=== PATIENT | male | born 1955 | race Caucasian/White ===

== ENCOUNTER 2018-07-04 09:23 | Outpatient (CLI) ==
[2013-12-21 17:12] VITALS: BMI 36.1
== END 2018-07-04 09:24 | disposition home or self-care (01) ==
LOC: LAB 09:23
PROVIDERS: ATTEND Internal Medicine
DX: E11.9 Type 2 diabetes mellitus without complications (principal); E78.5 Hyperlipidemia, unspecified; J44.9 Chronic obstructive pulmonary disease, unspecified; I25.10 Atherosclerotic heart disease of native coronary artery without angina pectoris; E66.9 Obesity, unspecified; E53.8 Deficiency of other specified B group vitamins; Z79.899 Other long term (current) drug therapy; Z12.5 Encounter for screening for malignant neoplasm of prostate
CPT/HCPCS: 36415; 80053; 80061; 81001; 83036; 84439; 84443; 85025

== ENCOUNTER 2023-01-27 10:02 | Inpatient (IN) ==
--- NOTE | 2023-01-27 10:46 | ED.PDOC ---
General ED Provider: Dr. ANAIS JENNINGS MD Chief Complaint: Shortness of Air Stated Complaint: mild to mod shortness of breath and SWAN today, no fever, no NV, hx chf, htn, dm Time Seen by Provider: 01/27/23 10:03 Mode of Arrival: Walk-In Information Source: Patient Primary Care Provider: KEISHA PEREZ MD Nursing and Triage Documentation Reviewed and Agree: Yes Does patient meet sepsis criteria?: No System Inflammatory Response Syndrome: Not Applicable Sepsis Protocol: For patient's 13 years and over: Temp is 96.8 and below OR 101 and greater Pulse >90 BPM Resp >20/minute Acutely Altered Mental Status Are patient's symptoms suggestive of a new infection, such as: -Pneumonia -Skin, Soft Tissue -Endocarditis -UTI -Bone, Joint Infection -Implantable Device -Acute Abdominal Infection -Wound Infection -Meningitis -Blood Stream Catheter Infection -Unknown Review of Systems Review Of Systems Constitutional: Reports Malaise; Denies Fever Eyes: Denies Vision change Ears, Nose, Mouth, Throat: Denies Throat pain Respiratory: Reports Cough and Short of air; Denies Stridor Cardiac: Denies Chest pain GI: Denies Abdominal pain : Denies Flank pain Musculoskeletal: Denies Back pain or Neck pain Skin: Denies Rash Neurological: Denies Cognitive dysfunction All Other Systems: Other [facility] Social History Smoking and tobacco status: Never smoker Surgical History H/O gastric bypass Physical Exam Physical Exam Appearance: Reports Obese Ill-appearing: Mild Pain Distress: None Eyes: Reports SRINIVAS, EOMI and Conjunctiva clear ENT: Reports Oropharynx normal Neck: Supple Respiratory: Reports Airway patent and Breath sounds equal; Denies Retractions Cardiovascular: Reports RRR GI/: Reports Soft and Nontender Musculoskeletal: Reports ROM intact and No edema Skin: Reports Warm and Dry Neurological: Reports Alert and Oriented Psychiatric: Reports Affect appropriate Interpretation Radiology Interpretation Radiology Interpretation By: Radiologist Exam Interpreted: CXR Xray Comments: small bilateral pleural effusions and left base infil EKG Interpretation Time of EKG #1: 12:09 Interpretation: atrial fib 95, pvc, no stemi Critical Care Note Critical Care Note Total Critical Care Time (mins): 0 Course Course Hematology/Chemistry: 01/27/23 10:45 01/27/23 10:45 Orders, Labs, Meds: Lab Review 01/27/23 01/27/23 01/27/23 10:45 10:45 10:45 WBC 9.42 RBC 4.61 L Hgb 14.2 Hct 44.0 MCV 95.4 H MCH 30.8 MCHC 32.3 RDW Coeff of Matilda 14.5 Plt Count 203 Immature Gran % (Auto) 0.5 Neut % (Auto) 84.8 H Lymph % (Auto) 7.4 L Haines % (Auto) 6.8 Eos % (Auto) 0.1 Baso % (Auto) 0.4 Neut # (Auto) 8.0 H Lymph # (Auto) 0.7 Haines # (Auto) 0.6 Eos # (Auto) 0.0 Baso # (Auto) 0.0 Immature Gran # (Auto) 0.1 PT INR APTT Puncture Site Base Excess O2 Saturation ABG pH ABG pCO2 ABG pO2 ABG HCO3 ABG Total CO2 Mikey Test Hemoglobin Oxyhemoglobin Carboxyhemoglobin Total Hemoglobin FiO2 % Sodium 136.0 Potassium 3.56 Chloride 103.6 Carbon Dioxide 21.5 L Anion Gap 14.46 BUN 17.1 Creatinine 0.72 Estimated GFR (MDRD) 109.00 BUN/Creatinine Ratio 23.75 Glucose 331.7 H Lactic Acid 1.85 Calcium 9.16 Total Bilirubin 1.25 AST 44.3 ALT 34.0 Alkaline Phosphatase 138.7 H Troponin I 0.021 NT-Pro-B Natriuret Pep 11623 H Total Protein 8.11 Albumin 4.54 Globulin 3.57 Albumin/Globulin Ratio 1.27 SARS CoV-2 RNA Rapid JORGE 01/27/23 01/27/23 01/27/23 10:45 10:55 10:55 WBC RBC Hgb Hct MCV MCH MCHC RDW Coeff of Matilda Plt Count Immature Gran % (Auto) Neut % (Auto) Lymph % (Auto) Haines % (Auto) Eos % (Auto) Baso % (Auto) Neut # (Auto) Lymph # (Auto) Haines # (Auto) Eos # (Auto) Baso # (Auto) Immature Gran # (Auto) PT 11.3 H INR 1.09 APTT 26.4 Puncture Site Rrad Base Excess 0.4 O2 Saturation 92.7 L ABG pH 7.46 H ABG pCO2 34.0 L ABG pO2 62.0 L ABG HCO3 24.2 ABG Total CO2 25.2 H Mikey Test Pos Hemoglobin 0.7 Oxyhemoglobin 90.5 L Carboxyhemoglobin 1.6 H Total Hemoglobin 14.5 FiO2 % 21.0 Sodium Potassium Chloride Carbon Dioxide Anion Gap BUN Creatinine Estimated GFR (MDRD) BUN/Creatinine Ratio Glucose Lactic Acid Calcium Total Bilirubin AST ALT Alkaline Phosphatase Troponin I NT-Pro-B Natriuret Pep Total Protein Albumin Globulin Albumin/Globulin Ratio SARS CoV-2 RNA Rapid JORGE Negative Orders Category Date Time Status ABG DRAW REQUEST Stat CARDIO 01/27/23 10:43 Ordered EKG-(ED ONLY) Stat CARDIO 01/27/23 10:43 Ordered OXYGEN [ED APPLY O2] .ONCE EMERGENCY 01/27/23 11:20 Active ABG COOX Stat LAB 01/27/23 10:55 Completed CBC W/ AUTO DIFF Stat LAB 01/27/23 10:45 Completed CMP [COMPREHENSIVE METABOLIC PANEL] Stat LAB 01/27/23 10:45 Completed LACTIC ACID Stat LAB 01/27/23 10:45 Completed NT-PROBNP(ED) Stat LAB 01/27/23 10:45 Completed PT WITH INR Stat LAB 01/27/23 10:45 Completed PTT [PARTIAL THROMBOPLASTIN TIME] Stat LAB 01/27/23 10:45 Completed SARS COV-2 RNA RAPID JORGE Stat LAB 01/27/23 10:55 Completed TROPONIN I Stat LAB 01/27/23 10:45 Completed 750 mg IV Daily Manuel MEDS 01/28/23 09:00 Ordered Levofloxacin/D5w [Levaquin 750 mg/150 ml D5w] 750 mg in 150 ml IV DAILY Enoxaparin Sodium [Lovenox] MEDS 01/27/23 12:07 Once 100 mg SUBCUT ONCE ONE Furosemide [Lasix] MEDS 01/27/23 12:07 Once 20 mg IVP ONCE ONE CHEST, 1V AP ONLY Stat RADS 01/27/23 11:31 Completed Vital Signs: Temp Pulse Resp BP Pulse Ox 01/27/23 11:19 98 01/27/23 10:02 98.1 F 95 17 155/80 H 95 Discharge Plan Discharge Patient Disposition: ADMITTED INPATIENT Prescriptions: No Action metformin 1,000 mg tablet 1,000 mg PO BID Qty: 60 3RF hydrocodone-acetaminophen 5-500 mg tablet 1 tab PO TID PRN (Reason: pain) Label Comments: PATIENT REQUEST furosemide [Lasix] 40 MG tablet 40 mg PO DAILY isosorbide mononitrate [Imdur] 30 MG tablet extended release 24 hr 30 mg PO DAILY potassium chloride [Klor-Con 10] 10 MEQ tablet extended release 10 meq PO DAILY clopidogrel [Plavix] 75 MG tablet 75 mg PO DAILY simvastatin 40 MG tablet 40 mg PO DAILY aspirin 325 MG tablet,delayed release (DR/EC) 325 mg PO DAILY ferrous sulfate 325 MG tablet 325 mg PO DAILY nitroglycerin [Nitrostat] 0.4 MG tablet, sublingual 0.4 mg sublingual PRN PRN (Reason: Chest Pain) diphenhydramine-acetaminophen [Tylenol PM Extra Strength] 1 EACH tablet 1,000 mg PO BEDTIME Fish Oil 1 EACH capsule 1 cap PO DAILY citalopram 40 mg tablet 40 mg PO BEDTIME losartan-hydrochlorothiazide 50-12.5 mg tablet 1 tab PO QDAY topiramate [Topamax] 25 mg tablet 25 mg PO QDAY metoprolol tartrate 50 mg tablet 50 mg PO BID spironolactone 25 mg tablet 25 mg PO QDAY Qty: 90 1RF lorazepam 1 mg tablet 1 mg PO BEDTIME Qty: 30 3RF lorazepam 1 mg tablet 1 mg PO BEDTIME Qty: 30 3RF Did you review [place] [employer] for ALL controlled substances?: Not Applicable ED Provider: ANAIS JENNINGS Condition: Stable Physician Progress Note: []treatment and consult per Dr Perez, admit to hospital, full tele
[2023-01-27 10:50] LABS: BASOPHILS % (AUTO) 0.4 % (0.0-3.0); EOSINOPHILS % (AUTO) 0.1 % (0.0-7.0); HEMOGLOBIN 14.2 g/dl (14.0-18.0); IMMATURE GRANULOCYTE # (AUTO) 0.1 (0.0-1.0); IMMATURE GRANULOCYTE % (AUTO) 0.5 % (0.0-5.0); LYMPHOCYTES # (AUTO) 0.7 K/uL (0.60-3.4); LYMPHOCYTES % (AUTO) 7.4 (10.0-50.0); MEAN CORPUSCULAR HEMOGLOBIN 30.8 pg (27.0-31.0); MEAN CORPUSCULAR HGB CONC 32.3 (31.8-35.4); MEAN CORPUSCULAR VOLUME 95.4 fl (80.0-94.0); MONOCYTES # (AUTO) 0.6 K/uL (0.4-2.0); MONOCYTES % (AUTO) 6.8 (0-10); NEUTROPHILS % (AUTO) 84.8 % (42.2-75.2); PLATELET COUNT 203 10^3/uL (140-440); RDW COEFFICIENT OF VARIATION 14.5 % (11.6-14.8); RED BLOOD COUNT 4.61 10^6/ul (4.70-6.10); WHITE BLOOD COUNT 9.42 K/ul (4.2-10.2)
[2023-01-27 11:00] LABS: ALBUMIN 4.54 g/dL (3.5-5.0); ALKALINE PHOSPHATASE 138.7 U/L (56-119); ASPARTATE AMINO TRANSFERASE 44.3 U/L (17-59); BILIRUBIN,TOTAL 1.25 mg/dL (0.2-1.3); BLOOD UREA NITROGEN 17.1 mg/dL (9-20); CALCIUM 9.16 mg/dL (8.4-10.2); CARBON DIOXIDE 21.5 mmol/L (22-30.0); CHLORIDE 103.6 mmol/L (98-107); CREATININE 0.72 mg/dL (0.60-1.10); GLUCOSE 331.7 mg/dL (74-106); POTASSIUM 3.56 mmol/L (3.5-5.1); TOTAL PROTEIN 8.11 g/dL (6.3-8.2)
[2023-01-27 11:04] LABS: ABG O2 HGB 90.5 % (95-100); ABG PH 7.46 (7.35-7.45); BEecf 0.4 (-2.0-3.0); COHb 1.6 (0.5-1.5); HCO3 24.2 (21-28); MetHb 0.7 (0-1.5); TCO2 25.2 (19-24); sO2 92.7 % (94-98); tHb 14.5 g/dl (11.7-17.4)
[2023-01-27 11:11] LABS: TROPONIN I 0.021 ng/ml (0.0000-0.120)
[2023-01-27 11:28] LABS: SARS COV-2 RNA RAPID NAAT NEGATIVE (NEGATIVE)
[2023-01-27 11:29] LABS: PARTIAL THROMBOPLASTIN TIME 26.4 SEC (23.9-40.0); PROTHROMBIN TIME 11.3 SEC (9.3-11.0)
--- NOTE | 2023-01-27 11:53 | DI ---
EXAM: ONE-VIEW CHEST HISTORY: Weak TECHNIQUE: Single frontal view the chest was obtained. Comparison 03/28/2021. FINDINGS: The heart is normal size. Midline sternotomy wires are seen. Questionable patchy opaciti es are suspected in the left lung base. Lungs are otherwise clear. The pulmonary vasculature appear s normal. Small bilateral pleural effusions are suspected. IMPRESSION: Small bilateral pleural effusions. Possible mild atelectasis versus pneumonia seen in the left lung base.
[2023-01-27] MEDS ORDERED: LOVENOX SUBCUT ONE (12:07)
[2023-01-27] MEDS ORDERED: LASIX IVP ONE (12:07)
[2023-01-27] MEDS ORDERED: NITROSTAT SL PRN (12:16)
[2023-01-27] MEDS ORDERED: LEVAQUIN 500 MG/100 ML D5W 500 MG/100 ML BAG IV ONE (12:21)
[2023-01-27] MEDS ORDERED: SODIUM CHLORIDE 1,000 ML IV SCH (12:30)
[2023-01-27] MEDS ORDERED: SODIUM CHLORIDE 0.9%-KCL 20 MEQ 1,000 ML IV SCH (12:30)
[2023-01-27] MEDS ORDERED: HYZAAR 50-12.5 MG TAB PO SCH (12:30)
[2023-01-27 13:20] VITALS: BMI 29.1
[2023-01-27] MEDS: TOPAMAX PO SCH (13:35)
[2023-01-27] MEDS: TYLENOL PO PRN (13:35)
[2023-01-27] MEDS: ALDACTONE PO SCH (13:36)
[2023-01-27 13:49] LABS: BILIRUBIN,URINE Negative (NEGATIVE); CLARITY,URINE Clear (CLEAR); COLOR,URINE Yellow (YELLOW); GLUCOSE, URINE (UA) 2+ (NEGATIVE); KETONES,URINE Trace (NEGATIVE); LEUKOCYTE ESTERASE ,URINE Negative (NEGATIVE); NITRITE,URINE Negative (NEGATIVE); PROTEIN,URINE 2+ (NEGATIVE); URINE, BLOOD Negative (NEGATIVE)
[2023-01-27 13:57] LABS: HYALINE CASTS, URINE 0-2 (NOT PRESENT); SQUAMOUS EPITHELIAL CELL,UR NOT PRESENT (0-5); URINE RBC, MICROSCOPIC 0-2 (0-2); URINE WBC, MICROSCOPIC 0-2 (0-2)
[2023-01-27] MEDS ORDERED: LOPRESSOR PO ONE (14:32)
[2023-01-27] MEDS: HUMULIN R SUBCUT PRN ×2 (17:03→22:08)
[2023-01-27] MEDS: DUONEB NEB SCH ×2 (17:32→23:10)
[2023-01-27] MEDS ORDERED: DECADRON IM ONE (18:00)
[2023-01-27] MEDS ORDERED: PHENERGAN WITH CODEINE 6.25/10 MG/5 ML PO PRN (18:10)
[2023-01-27] MEDS: COZAAR PO SCH (20:22)
[2023-01-27] MEDS: TYLENOL PO SCH (20:23)
[2023-01-27] MEDS: CELEXA PO SCH (20:23)
[2023-01-27] MEDS: LOPRESSOR PO SCH (20:24)
[2023-01-27] MEDS: ATIVAN PO SCH (20:24)
[2023-01-27] MEDS: BENADRYL PO SCH (20:24)
[2023-01-27] MEDS ORDERED: ATIVAN PO SCH (21:00)
[2023-01-27] MEDS ORDERED: LOVENOX SUBCUT SCH (21:00)
[2023-01-28 02:04] LABS: BASOPHILS % (AUTO) 0.2 % (0.0-3.0); HEMATOCRIT 40.8 % (42.0-52.0); HEMOGLOBIN 13.1 g/dl (14.0-18.0); IMMATURE GRANULOCYTE % (AUTO) 0.7 % (0.0-5.0); LYMPHOCYTES # (AUTO) 0.6 K/uL (0.60-3.4); LYMPHOCYTES % (AUTO) 9.2 (10.0-50.0); MEAN CORPUSCULAR HEMOGLOBIN 30.6 pg (27.0-31.0); MEAN CORPUSCULAR HGB CONC 32.1 (31.8-35.4); MEAN CORPUSCULAR VOLUME 95.3 fl (80.0-94.0); MONOCYTES # (AUTO) 0.4 K/uL (0.4-2.0); MONOCYTES % (AUTO) 6.9 (0-10); NEUTROPHILS # (AUTO) 5.1 K/ul (2.0-6.9); PLATELET COUNT 178 10^3/uL (140-440); RDW COEFFICIENT OF VARIATION 14.6 % (11.6-14.8); RED BLOOD COUNT 4.28 10^6/ul (4.70-6.10); WHITE BLOOD COUNT 6.09 K/ul (4.2-10.2)
[2023-01-28 02:16] LABS: ALANINE AMINOTRANSFERASE 29.4 U/L (0-50); ALBUMIN 4.07 g/dL (3.5-5.0); ALKALINE PHOSPHATASE 99.6 U/L (56-119); ASPARTATE AMINO TRANSFERASE 41.1 U/L (17-59); BLOOD UREA NITROGEN 16.3 mg/dL (9-20); CALCIUM 8.53 mg/dL (8.4-10.2); CARBON DIOXIDE 25.3 mmol/L (22-30.0); CHLORIDE 102.4 mmol/L (98-107); CREATININE 0.74 mg/dL (0.60-1.10); GLUCOSE 195.5 mg/dL (74-106); POTASSIUM 3.66 mmol/L (3.5-5.1); SODIUM 134.8 mmol/L (134.5-145); TOTAL PROTEIN 7.35 g/dL (6.3-8.2)
[2023-01-28 02:28] LABS: TROPONIN I 0.04 ng/ml (0.0000-0.120)
[2023-01-28 02:47] LABS: THYROID STIMULATING HORMONE 0.354 uIU/L (0.465-4.68)
[2023-01-28] MEDS: DUONEB NEB SCH ×4 (04:45→23:55)
[2023-01-28] MEDS: NORCO 5-325 PO PRN (05:40)
[2023-01-28] MEDS: HUMULIN R SUBCUT PRN ×4 (06:09→21:28)
[2023-01-28] MEDS ORDERED: LASIX IVP ONE (08:03)
[2023-01-28] MEDS: IMDUR PO SCH (08:47)
[2023-01-28] MEDS: COZAAR PO SCH ×2 (08:47→20:33)
[2023-01-28] MEDS: ALDACTONE PO SCH (08:48)
[2023-01-28] MEDS: ZOCOR PO SCH (08:48)
[2023-01-28] MEDS: LASIX TAB PO SCH (08:48)
[2023-01-28] MEDS: OMEGA-3 FISH OIL PO SCH (08:49)
[2023-01-28] MEDS: FERROUS SULFATE PO SCH (08:49)
[2023-01-28] MEDS: LOPRESSOR PO SCH ×2 (08:49→20:33)
[2023-01-28] MEDS: TOPAMAX PO SCH (08:50)
[2023-01-28] MEDS: LEVAQUIN 750 MG/150 ML D5W 750 MG/150 ML BAG IV SCH (08:55)
[2023-01-28] MEDS ORDERED: PLAVIX PO SCH (09:00)
[2023-01-28] MEDS ORDERED: ASPIRIN EC PO SCH (09:00)
[2023-01-28] MEDS ORDERED: MICRO-K CAP PO SCH (09:00)
[2023-01-28] MEDS ORDERED: DECADRON IM SCH (09:00)
[2023-01-28] MEDS ORDERED: LEVAQUIN 750 MG/150 ML D5W 750 MG/150 ML BAG IV SCH (09:00)
[2023-01-28] MEDS: TYLENOL PO PRN (20:32)
[2023-01-28] MEDS: ATIVAN PO SCH (20:33)
[2023-01-28] MEDS: BENADRYL PO SCH (20:33)
[2023-01-28] MEDS: CELEXA PO SCH (20:33)
[2023-01-28] MEDS: TYLENOL PO SCH (20:51)
[2023-01-29] MEDS: DUONEB NEB SCH ×4 (05:20→23:08)
[2023-01-29 05:24] LABS: BASOPHILS % (AUTO) 0.2 % (0.0-3.0); EOSINOPHILS # (AUTO) 0.1 K/ul (0.0-0.7); HEMATOCRIT 39.7 % (42.0-52.0); IMMATURE GRANULOCYTE % (AUTO) 0.5 % (0.0-5.0); LYMPHOCYTES # (AUTO) 1.2 K/uL (0.60-3.4); LYMPHOCYTES % (AUTO) 14.3 (10.0-50.0); MEAN CORPUSCULAR HEMOGLOBIN 31.4 pg (27.0-31.0); MEAN CORPUSCULAR HGB CONC 32.7 (31.8-35.4); MEAN CORPUSCULAR VOLUME 95.9 fl (80.0-94.0); MONOCYTES # (AUTO) 0.7 K/uL (0.4-2.0); MONOCYTES % (AUTO) 8.8 (0-10); NEUTROPHILS # (AUTO) 6.1 K/ul (2.0-6.9); NEUTROPHILS % (AUTO) 75.2 % (42.2-75.2); PLATELET COUNT 187 10^3/uL (140-440); RDW COEFFICIENT OF VARIATION 14.2 % (11.6-14.8); RED BLOOD COUNT 4.14 10^6/ul (4.70-6.10); WHITE BLOOD COUNT 8.11 K/ul (4.2-10.2)
[2023-01-29 05:42] LABS: ALANINE AMINOTRANSFERASE 28.2 U/L (0-50); ALBUMIN 3.83 g/dL (3.5-5.0); ALKALINE PHOSPHATASE 95.7 U/L (56-119); ASPARTATE AMINO TRANSFERASE 38.7 U/L (17-59); BILIRUBIN,TOTAL 0.72 mg/dL (0.2-1.3); BLOOD UREA NITROGEN 15.6 mg/dL (9-20); CALCIUM 8.81 mg/dL (8.4-10.2); CARBON DIOXIDE 30.3 mmol/L (22-30.0); CHLORIDE 101.4 mmol/L (98-107); CREATININE 0.87 mg/dL (0.60-1.10); GLUCOSE 125.2 mg/dL (74-106); POTASSIUM 3.22 mmol/L (3.5-5.1); SODIUM 137.3 mmol/L (134.5-145); TOTAL PROTEIN 7.01 g/dL (6.3-8.2)
[2023-01-29] MEDS ORDERED: LASIX IVP ONE (06:00)
[2023-01-29] MEDS: TYLENOL PO PRN (07:30)
--- NOTE | 2023-01-29 08:56 | PCM.PROG ---
Attending Provider: ATTENDING PROVIDER: Dr. KEISHA KNUTSON MD This patient is seen with Cami Parker, Nurse Practitioner. DATE OF SERVICE: 01/29/23 SUBJECTIVE: This 67 year old /WHITE M was hospitalized 01/27/23. Had over 2,500 out yesterday. Down several pounds since admission. Repeat PRO BNP today. Breathing some better requiring oxygen. Dr. Knutson did Echo yesterday results are pending. REVIEW OF SYSTEMS: CONSTITUTIONAL: No night sweats. No fatigue, malaise, lethargy. No fever or chills. HEENT: Eyes: No visual changes. No eye pain. No eye discharge. ENT: No runny nose. No epistaxis. No sinus pain. No odynophagia. No congestion. RESPIRATORY: No cough, no congestion. No hemoptysis. Shortness of breath. CARDIOVASCULAR: No angina symptoms. No CHF symptoms. No atypical chest pain for CAD. No palpitations. Orthopnea.. GASTROINTESTINAL: No abdominal pain. No nausea or vomiting. No diarrhea or constipation. No hematemesis. No hematochezia. GENITOURINARY: No urgency. No frequency. No dysuria. No hematuria. No obstructive symptoms. No discharge. No pain. No significant abnormal bleeding. MUSCULOSKELETAL: No musculoskeletal pain; no joint swelling. Weakness. Leg edema. NEUROLOGICAL: Awake, alert, oriented to time, place and person. No headache. No neck pain. No syncope. No seizures. No dizziness. PSYCHIATRIC: Not anxious. No depression. No suicidal thoughts. No homicidal thoughts. SKIN: No rash. No lesions. No wounds. ENDOCRINE: No unexplained weight loss. No weight gain. HEMATOLOGIC/LYMPHATIC: No anemia. No purpura. No petechiae. No prolonged or ex cessive bleeding. No palpable lymph nodes. PHYSICAL EXAMINATION: GENERAL: The patient is awake, alert and oriented, sitting in bed in no distress. VITAL SIGNS: Temperature 97.7 F, Pulse 80, Respiratory Rate 18, BP 123/74, Pulse Ox 95% HEENT: Head normocephalic, atraumatic. Eyes: Extraocular muscles are intact. Pupils are equal, round and reactive to light and accommodation. Ears: No lesions. Nose appeared normal. Throat: No exudate or erythema. NECK: Supple. No JVD, no carotid bruit. No lymphadenopathy or thyromegaly. LUNGS: Severely diminished breath sounds. Bilateral crepitations. Use of accessory muscles to breathe. Clear to auscultation. Percussion note normal. Chest symmetrical. Pursed lip breathing. HEART: S1, S2, no S3. No murmurs. No cyanosis or clubbing. No ascites. Pulses: Dorsalis pedis and posterior tibial pulses +1 to +2 both sides. ABDOMEN: Soft. Non-tender. Bowel sounds active. No CVA tenderness. No mass felt. EXTREMITIES: No edema. Full range of motion of all extremities, equal. NEUROLOGIC: No focal deficit. Cranial nerves II through XII are grossly intact. No headache. No double vision. SKIN: Not dry. Intact. Turgor-normal. LYMPHATIC: No palpable lymph nodes/no lymphedema. MUSCULOSKELETAL: Normal joints with no swelling. Muscle tone is normal. LAB REVIEW: 01/29/23 05:04 01/29/23 05:04 01/29/23 05:04: Sodium 137.3, Potassium 3.22 L, Chloride 101.4, Carbon Dioxide 30.3 H, Anion Gap 8.82, BUN 15.6, Creatinine 0.87, Estimated GFR (MDRD) 87.00, BUN/Creatinine Ratio 17.93, Glucose 125.2 H, Calcium 8.81, Total Bilirubin 0.72, AST 38.7, ALT 28.2, Alkaline Phosphatase 95.7, Total Protein 7.01, Albumin 3.83, Globulin 3.18, Albumin/Globulin Ratio 1.20 01/29/23 05:04: WBC 8.11, RBC 4.14 L, Hgb 13.0 L, Hct 39.7 L, MCV 95.9 H, MCH 31.4 H, MCHC 32.7, RDW Coeff of Matilda 14.2, Plt Count 187, Immature Gran % (Auto) 0.5, Neut % (Auto) 75.2, Lymph % (Auto) 14.3, Tate % (Auto) 8.8, Eos % (Auto) 1.0, Baso % (Auto) 0.2, Neut # (Auto) 6.1, Lymph # (Auto) 1.2, Tate # (Auto) 0.7, Eos # (Auto) 0.1, Baso # (Auto) 0.0, Immature Gran # (Auto) 0.0 ASSESSMENT: Please see below. 1. Acute respiratory failure related to CHF 2. Acute CHF 3. New onset atrial fibrillation 4. Dilated cardiomyopathy with reduced ejection fraction, enlarged LA cavity 5. Hypokalemia 6. Hypertension PLAN: 1. Will for on PFT 2. Continue to monitor weight 3. Daily I&O 4. Continue with O2 5. Received 40mg IV Lasix today 6. Start Eliquis 5mg BID today 7. Potassium 20meq BID Plan and coordination of the patient's care discussed in the presence of Kerfer Machine Operator and nurse. SCRIBED BY: Kaila BAINS scribed while in presence of service performed by Cami Parker APRN on 01/29/23 ([id number])
[2023-01-29] MEDS ORDERED: MICRO-K CAP PO SCH (09:00)
[2023-01-29] MEDS: K-DUR PO SCH ×2 (09:50→17:00)
[2023-01-29] MEDS: OMEGA-3 FISH OIL PO SCH (09:50)
[2023-01-29] MEDS: LEVAQUIN 750 MG/150 ML D5W 750 MG/150 ML BAG IV SCH (09:50)
[2023-01-29] MEDS: LOPRESSOR PO SCH ×2 (09:50→20:08)
[2023-01-29] MEDS: TOPAMAX PO SCH (09:50)
[2023-01-29] MEDS: IMDUR PO SCH (09:52)
[2023-01-29] MEDS: COZAAR PO SCH ×2 (09:52→20:09)
[2023-01-29] MEDS: FERROUS SULFATE PO SCH (09:53)
[2023-01-29] MEDS: ZOCOR PO SCH (09:54)
[2023-01-29] MEDS: ELIQUIS PO SCH ×2 (09:55→20:09)
[2023-01-29] MEDS: ALDACTONE PO SCH (09:55)
--- NOTE | 2023-01-29 11:05 | HP ---
DATE OF SERVICE: 01/27/23 REASON FOR HOSPITALIZATION/HISTORY OF PRESENT ILLNESS: 67 year old white male hospitalized with cough, congestion and shortness of air nearly 2-3 weeks duration but getting worse in past 2-3 days. The patient was seen in the emergency room. Chest x-ray showed the possibility of pneumonia. The patient has cough with mildly yellow sputum production for past 2-3 days, short of breath with exertion more than usual for past couple of weeks, was consistent with orthopnea a couple of days. PAST MEDICAL HISTORY/PAST SURGICAL HISTORY: The patient is 29 BMI. History of anemia CHF Dyslipidemia Hypertension Diabetes mellitus Depression Generalized osteoarthritis REVIEW OF SYSTEMS: CONSTITUTIONAL: No night sweats. Fatigue. No fever or chills. HEENT: Eyes: No visual changes. No eye pain. No eye discharge. ENT: No runny nose. No epistaxis. No sinus pain. No sore throat. No odynophagia. No ear pain. No congestion. RESPIRATORY: Cough with yellowish sputum production, no congestion. No hemoptysis. Shortness of breath on minimal exertion. CARDIOVASCULAR: No angina symptoms. No CHF symptoms. No atypical chest pain for CAD. No palpitations. No PND. Questionable orthopnea a couple of days prior to hospitalization. GASTROINTESTINAL: No abdominal pain. No nausea or vomiting. No diarrhea or constipation. No hematemesis. No hematochezia. Appetite has been somewhat below par. GENITOURINARY: No urgency. No frequency. No dysuria. No hematuria. No obstructive symptoms. No discharge. No pain. No significant abnormal bleeding. MUSCULOSKELETAL: No musculoskeletal pain. No joint swelling. No arthritis. Weakness. NEUROLOGICAL: No headache. No neck pain. No syncope. No seizures. No dizziness. PSYCHIATRIC: Not anxious. No depression. No suicidal thoughts. No homicidal thoughts. SKIN: No rash. No lesions. No wounds. ENDOCRINE: No unexplained weight loss. No weight gain. HEMATOLOGIC/LYMPHATIC: No anemia. No purpura. No petechiae. No prolonged or excessive bleeding. No palpable lymph nodes. PERSONAL/FAMILY/SOCIAL HISTORY: The patient lives by himself. Nonsmoker. No alcohol abuse. Does all activity of daily living. Non-smoker. No alcohol abuse. 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 MEDICATIONS: Aspirin Clopidogrel Ferrous sulfate Lasix Isosorbide Nitroglycerin Potassium Simvastatin Lorazepam Losartan Metoprolol Spironolactone Metformin Hydrocodone Citalopram ALLERGIES: None PHYSICAL EXAMINATION: GENERAL: The patient is oriented to time, place and person. VITAL SIGNS: Temperature 97.3, pulse 100, respiratory rate 20, blood pressure 155/80 and pulse ox 99% with 2 liters. HEENT: Head normocephalic, atraumatic. Eyes: Extraocular muscles are intact. Pupils are equal, round and reactive to light and accommodation. Ears: No lesions. Nose appeared normal. Throat: No exudate or erythema. NECK: Supple. No JVD, no carotid bruit. No lymphadenopathy or thyromegaly. LUNGS: Decreased breath sounds with few crepitation mostly dry. Clear to auscultation. Percussion note normal. Chest symmetrical. HEART: S1, S2, no S3. Irregular rate, 100 per minute. No murmur. No cyanosis or clubbing. No ascites. Pulses: Dorsalis pedis and posterior tibial pulses +1 bilaterally. ABDOMEN: Soft. Nontender. Bowel sounds active. No CVA tenderness. No mass felt. Don't think that there is ascites. EXTREMITIES: Trace to 1+ pitting edema. Full range of motion of all extremities, equal. NEUROLOGIC: No focal deficit. Cranial nerves II through XII are grossly intact. No headache, no double vision or headache. SKIN: Not dry. Intact. Turgor - normal. LYMPHATIC: No palpable lymph nodes/no lymphedema. MUSCULOSKELETAL: Normal joints with no swelling. Muscle tone is normal. LABS: Hgb 14, hct 44, WBC 9,400 normal differential, creatinine 0.7, BUN 17, potassium 3.5. Lactic acid 1.85. ProBNP 10,500. GFR 109 cc per minutes. ABG pO2 62, pCO2 34, pH 7.4 with 93% saturation on room air. Chest x-ray possibility of pneumonia, left side. ASSESSMENT: 1. Acute pneumonitis 2. Possibility of congestive heart failure 3. History of CHF, systolic 4. Hypertension 5. Diabetes Mellitus 6. Dyslipidemia 7. Depression 8. Generalized osteoarthritis 9. Chronic lung disease PLAN: 1. Admit regular floor 2. Routine telemetry orders 3. IV Lasix 40mg 4. Levaquin 150mg IV Q 24 hours 5. Continue all the rest of the medications with the changes as follows 6. Discontinue Cozaar with hydrochlorothiazide 7. Cozaar 50 twice a day 8. The patient is on Lasix. There is no need to continue Hydrochlorothiazide with Cozaar 9. 1cc Decadron IM now and 1cc Decadron in the morning. 10.Echocardiogram to evaluation LV function 11.Oxygen at 2 liters 12.Continue DUO NEBS as ordered 13.The patient explained about the diagnosis and treatment. CONDITION: Stable The patient is DNI. TIME SPENT: More than 75 minutes. ADDENDUM: The patient's EKG showed atrial fibrillation with rate of 100 per minute. Seems to be almost a new finding to be me but I will check the office chart. The patient's doesn't have palpitation. Extra dose of Lopressor given 50mg. He will have an echo that will evaluate for thrombus or thrombi along with LA size and left ventricular function. He is going to be on Lovenox for now with Plavix but the patient is going to be converted to Eliquis if the atrial fibrillation continues more than 24 hours. MTDD
[2023-01-29] MEDS: HUMULIN R SUBCUT PRN ×3 (11:44→20:55)
--- NOTE | 2023-01-29 13:14 | PN ---
DATE OF SERVICE: 01/28/23 SUBJECTIVE: The patient was seen and examined with the Nurse Practitioner. The patient is feeling somewhat better. REVIEW OF SYSTEMS: CONSTITUTIONAL: No night sweats. No fatigue, malaise, lethargy. No fever or chills. HEENT: Eyes: No visual changes. No eye pain. No eye discharge. ENT: No runny nose. No epistaxis. No sinus pain. No sore throat. No odynophagia. No congestion. RESPIRATORY: No cough, no congestion. No hemoptysis. No shortness of breath. CARDIOVASCULAR: No angina symptoms. No CHF symptoms. No atypical chest pain for CAD. No palpitations. No PND. No orthopnea. GASTROINTESTINAL: No abdominal pain. No nausea or vomiting. No diarrhea or constipation. No hematemesis. No hematochezia. GENITOURINARY: No urgency. No frequency. No dysuria. No hematuria. No obstructive symptoms. No discharge. No pain. No significant abnormal bleeding. MUSCULOSKELETAL: No musculoskeletal pain; no joint swelling. NEUROLOGICAL: No headache. No neck pain. No syncope. No seizures. No dizziness. PSYCHIATRIC: Not anxious. No depression. No suicidal thoughts. No homicidal thoughts. SKIN: No rash. No lesions. No wounds. ENDOCRINE: No unexplained weight loss. No weight gain. HEMATOLOGIC/LYMPHATIC: No anemia. No purpura. No petechiae. No prolonged or excessive bleeding. No palpable lymph nodes. PHYSICAL EXAMINATION: HEENT: Head normocephalic, atraumatic. Eyes: Extraocular muscles are intact. Pupils are equal, round and reactive to light and accommodation. Ears: No lesions. Nose appeared normal. Throat: No exudate or erythema. NECK: Supple. No JVD, no carotid bruit. No lymphadenopathy or thyromegaly. LUNGS: Decreased breath sounds and better air entry than yesterday. Percussion note normal. Chest symmetrical. HEART: S1, S2, no S3. No murmurs. No cyanosis or clubbing. No ascites. Pulses: Dorsalis pedis and posterior tibial pulses +1 to +2 bilaterally. ABDOMEN: Soft. Nontender. Bowel sounds active. No CVA tenderness. No mass felt. EXTREMITIES: No edema. Full range of motion of all extremities, equal. NEUROLOGIC: No focal deficit. Cranial nerves II through XII are grossly intact. No headache. No double vision. SKIN: Not dry. Intact. Turgor - normal. LYMPHATIC: No palpable lymph nodes/no lymphedema. MUSCULOSKELETAL: Normal joints with no swelling. Muscle tone is normal. ASSESSMENT: 1. Pneumonia seems to be resolving, clinically better, coughing 2. CHF, no symptoms of it. No orthopnea. Slept well at 4-5 hours. 3. PLAN: 1. The patient had an echo done which showed enlarged LA cavity, LV cavity, ejection fraction 40%. 2. The patient continues to have atrial fibrillation. 3. We are going to stop Plavix, Aspirin, Lovenox 4. Eliquis from tomorrow. Side effects of Eliquis discussed with the patient including intracranial bleed, GI bleed. Advised not to take nonsteroidal antiinflammatory CONDITION: Stable. TIME SPENT: More than 35 minutes. Plan and coordination of the patient's care discussed in the presence of nurse. CARLOS
[2023-01-29] MEDS: TYLENOL PO SCH (20:08)
[2023-01-29] MEDS: ATIVAN PO SCH (20:08)
[2023-01-29] MEDS: BENADRYL PO SCH (20:09)
[2023-01-29] MEDS: CELEXA PO SCH (20:09)
[2023-01-30] MEDS: DUONEB NEB SCH ×4 (04:45→23:06)
[2023-01-30 05:22] LABS: BASOPHILS % (AUTO) 0.7 % (0.0-3.0); EOSINOPHILS # (AUTO) 0.2 K/ul (0.0-0.7); EOSINOPHILS % (AUTO) 2.8 % (0.0-7.0); HEMATOCRIT 43.5 % (42.0-52.0); HEMOGLOBIN 13.9 g/dl (14.0-18.0); IMMATURE GRANULOCYTE % (AUTO) 0.5 % (0.0-5.0); LYMPHOCYTES # (AUTO) 1.3 K/uL (0.60-3.4); LYMPHOCYTES % (AUTO) 22.5 (10.0-50.0); MEAN CORPUSCULAR HEMOGLOBIN 30.6 pg (27.0-31.0); MEAN CORPUSCULAR VOLUME 95.8 fl (80.0-94.0); MONOCYTES # (AUTO) 0.6 K/uL (0.4-2.0); MONOCYTES % (AUTO) 9.7 (0-10); NEUTROPHILS # (AUTO) 3.7 K/ul (2.0-6.9); NEUTROPHILS % (AUTO) 63.8 % (42.2-75.2); PLATELET COUNT 187 10^3/uL (140-440); RDW COEFFICIENT OF VARIATION 14.5 % (11.6-14.8); RED BLOOD COUNT 4.54 10^6/ul (4.70-6.10); WHITE BLOOD COUNT 5.77 K/ul (4.2-10.2)
[2023-01-30 05:36] LABS: ALANINE AMINOTRANSFERASE 39.6 U/L (0-50); ALBUMIN 3.91 g/dL (3.5-5.0); ALKALINE PHOSPHATASE 88.8 U/L (56-119); ASPARTATE AMINO TRANSFERASE 47.6 U/L (17-59); BILIRUBIN,TOTAL 0.7 mg/dL (0.2-1.3); BLOOD UREA NITROGEN 19.9 mg/dL (9-20); CALCIUM 8.66 mg/dL (8.4-10.2); CARBON DIOXIDE 30.2 mmol/L (22-30.0); CHLORIDE 100.2 mmol/L (98-107); CREATININE 0.98 mg/dL (0.60-1.10); GLUCOSE 113.6 mg/dL (74-106); POTASSIUM 3.58 mmol/L (3.5-5.1); SODIUM 135.1 mmol/L (134.5-145); TOTAL PROTEIN 7.09 g/dL (6.3-8.2)
[2023-01-30] MEDS: LASIX TAB PO SCH (06:03)
[2023-01-30] MEDS: K-DUR PO SCH ×2 (09:10→17:33)
[2023-01-30] MEDS: ALDACTONE PO SCH (09:10)
[2023-01-30] MEDS: IMDUR PO SCH (09:10)
[2023-01-30] MEDS: LEVAQUIN 750 MG/150 ML D5W 750 MG/150 ML BAG IV SCH (09:10)
[2023-01-30] MEDS: LOPRESSOR PO SCH ×2 (09:10→20:26)
[2023-01-30] MEDS: COZAAR PO SCH ×2 (09:10→20:27)
[2023-01-30] MEDS: OMEGA-3 FISH OIL PO SCH (09:10)
[2023-01-30] MEDS: ZOCOR PO SCH (09:11)
[2023-01-30] MEDS: TOPAMAX PO SCH (09:11)
[2023-01-30] MEDS: FERROUS SULFATE PO SCH (09:11)
[2023-01-30] MEDS: ELIQUIS PO SCH ×2 (09:11→20:27)
[2023-01-30] MEDS: HUMULIN R SUBCUT PRN ×2 (12:25→20:25)
[2023-01-30] MEDS: NORCO 5-325 PO PRN (13:36)
--- NOTE | 2023-01-30 13:49 | PN ---
DATE OF SERVICE: 01/29/23 SUBJECTIVE: Patient was seen and examined with the nurse practitioner. Patient's condition has improved. His breathing is a lot better. His pneumonitis seems to have resolved clinically. His appetite has improved. I think he had a combination of bronchitis with CHF. Atrial fib is a new onset. We put patient on Eliquis. Patient has enlarged left atrium for a while from his previous echos. Patient declined to see third cook. He doesn't want cardioversion. He says he is feeling fine and is good with the medicine and that's all he would like to have. REVIEW OF SYSTEMS: CONSTITUTIONAL: No night sweats. No fatigue, malaise, lethargy. No fever or chills. HEENT: Eyes: No visual changes. No eye pain. No eye discharge. ENT: No runny nose. No epistaxis. No sinus pain. No sore throat. No odynophagia. No congestion. RESPIRATORY: No cough, no congestion. No hemoptysis. No shortness of breath. CARDIOVASCULAR: No angina symptoms. No CHF symptoms. No atypical chest pain for CAD. No palpitations. No PND. No orthopnea. GASTROINTESTINAL: No abdominal pain. No nausea or vomiting. No diarrhea or constipation. No hematemesis. No hematochezia. GENITOURINARY: No urgency. No frequency. No dysuria. No hematuria. No obstructive symptoms. No discharge. No pain. No significant abnormal bleeding. MUSCULOSKELETAL: No musculoskeletal pain; no joint swelling. NEUROLOGICAL: No headache. No neck pain. No syncope. No seizures. No dizziness. PSYCHIATRIC: Not anxious. No depression. No suicidal thoughts. No homicidal thoughts. SKIN: No rash. No lesions. No wounds. ENDOCRINE: No unexplained weight loss. No weight gain. HEMATOLOGIC/LYMPHATIC: No anemia. No purpura. No petechiae. No prolonged or excessive bleeding. No palpable lymph nodes. PHYSICAL EXAMINATION: GENERAL: The patient is in no distress. HEENT: Head normocephalic, atraumatic. Eyes: Extraocular muscles are intact. Pupils are equal, round and reactive to light and accommodation. Ears: No lesions. Nose appeared normal. Throat: No exudate or erythema. NECK: Supple. No JVD, no carotid bruit. No lymphadenopathy or thyromegaly. LUNGS: Clear to auscultation. Percussion note normal. Chest symmetrical. HEART: S1, S2, no S3. No murmurs. No cyanosis or clubbing. No ascites. Pulses: Dorsalis pedis and posterior tibial pulses +1 to +2 bilaterally. ABDOMEN: Soft. Nontender. Bowel sounds active. No CVA tenderness. No mass felt. EXTREMITIES: No edema. Full range of motion of all extremities, equal. NEUROLOGIC: No focal deficit. Cranial nerves II through XII are grossly intact. No headache. No double vision. SKIN: Not dry. Intact. Turgor - normal. LYMPHATIC: No palpable lymph nodes/no lymphedema. MUSCULOSKELETAL: Normal joints with no swelling. Muscle tone is normal. TIME SPENT: More than 35 minutes. Plan and coordination of the patient's care discussed in the presence of nurse. CARLOS
--- NOTE | 2023-01-30 13:56 | PN ---
DATE OF SERVICE: 01/30/23 SUBJECTIVE: 67 year old white male hospitalized with respiratory failure, hypoxemia. Patient's condition seems to be improving, he is feeling better and talking a lot better. He is coughing much less. REVIEW OF SYSTEMS: CONSTITUTIONAL: No fever or chills. HEENT: Eyes: No visual changes. No eye pain. No eye discharge. ENT: No runny nose. No epistaxis. No sinus pain. No sore throat. No odynophagia. No congestion. RESPIRATORY: Shortness of breath but a lot better. CARDIOVASCULAR: No palpitations. No PND. No orthopnea. GASTROINTESTINAL: No abdominal pain. No nausea or vomiting. No diarrhea or constipation. No hematemesis. No hematochezia. GENITOURINARY: No urgency. No frequency. No dysuria. No hematuria. No obstructive symptoms. No discharge. No pain. No significant abnormal bleeding. MUSCULOSKELETAL: No musculoskeletal pain; no joint swelling. NEUROLOGICAL: No headache. No neck pain. No syncope. No seizures. No dizziness. PSYCHIATRIC: Not anxious. No depression. No suicidal thoughts. No homicidal thoughts. SKIN: No rash. No lesions. No wounds. ENDOCRINE: No unexplained weight loss. No weight gain. HEMATOLOGIC/LYMPHATIC: No anemia. No purpura. No petechiae. No prolonged or excessive bleeding. No palpable lymph nodes. PHYSICAL EXAMINATION: GENERAL: The patient is in no distress. VITAL SIGNS: Temperature 97.7, pulse 74, respiratory rate 20, blood pressure 112/72, pulse ox 98% with two liters. HEENT: Head normocephalic, atraumatic. Eyes: Extraocular muscles are intact. Pupils are equal, round and reactive to light and accommodation. Ears: No lesions. Nose appeared normal. Throat: No exudate or erythema. NECK: Supple. No JVD, no carotid bruit. No lymphadenopathy or thyromegaly. LUNGS: Decreased breath sounds but clear. HEART: S1, S2, no S3. No murmurs. No cyanosis or clubbing. No ascites. Pulses: Dorsalis pedis and posterior tibial pulses +1 to +2 bilaterally. ABDOMEN: Soft. Bowel sounds active. EXTREMITIES: No trace edema. NEUROLOGIC: No focal deficit. Cranial nerves II through XII are grossly intact. No headache. No double vision. SKIN: Not dry. Intact. Turgor - normal. LYMPHATIC: No palpable lymph nodes/no lymphedema. MUSCULOSKELETAL: Normal joints with no swelling. Muscle tone is normal. LABS: Hemoglobin 13.9, hematocrit 43, WBC 5,700, normal differential, creatinine 0.9, BUN 19, potassium 3.5, ProBNP yesterday was 8,360. ASSESSMENT: 1. CHF under control 2. Pneumonitis seems to be resolving 3. 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 Echo report discussed with the patient with ejection fraction close to 40-45% and enlarged LA and LV cavitities. Patient has history of coronary artery disease with stent, been nearly 15-20 years ago. History of IA. Patient also had coronary artery bypass several years after his IA. TIME SPENT: More than 35 minutes. Plan and coordination of the patient's care discussed in the presence of nurse. CARLOS
[2023-01-30] MEDS: BENADRYL PO SCH (20:26)
[2023-01-30] MEDS: TYLENOL PO SCH (20:26)
[2023-01-30] MEDS: ATIVAN PO SCH (20:26)
[2023-01-30] MEDS: CELEXA PO SCH (20:27)
[2023-01-31] MEDS: DUONEB NEB SCH ×4 (04:45→23:05)
[2023-01-31 05:25] LABS: BASOPHILS # (AUTO) 0.1 K/uL (0-0.2); BASOPHILS % (AUTO) 0.7 % (0.0-3.0); EOSINOPHILS # (AUTO) 0.2 K/ul (0.0-0.7); EOSINOPHILS % (AUTO) 2.5 % (0.0-7.0); HEMATOCRIT 42.9 % (42.0-52.0); HEMOGLOBIN 13.4 g/dl (14.0-18.0); IMMATURE GRANULOCYTE # (AUTO) 0.1 (0.0-1.0); IMMATURE GRANULOCYTE % (AUTO) 0.7 % (0.0-5.0); LYMPHOCYTES # (AUTO) 1.3 K/uL (0.60-3.4); LYMPHOCYTES % (AUTO) 17.3 (10.0-50.0); MEAN CORPUSCULAR HEMOGLOBIN 30.3 pg (27.0-31.0); MEAN CORPUSCULAR HGB CONC 31.2 (31.8-35.4); MEAN CORPUSCULAR VOLUME 97.1 fl (80.0-94.0); MONOCYTES # (AUTO) 0.7 K/uL (0.4-2.0); MONOCYTES % (AUTO) 9.3 (0-10); NEUTROPHILS # (AUTO) 5.2 K/ul (2.0-6.9); NEUTROPHILS % (AUTO) 69.5 % (42.2-75.2); PLATELET COUNT 226 10^3/uL (140-440); RDW COEFFICIENT OF VARIATION 14.4 % (11.6-14.8); RED BLOOD COUNT 4.42 10^6/ul (4.70-6.10)
[2023-01-31 05:38] LABS: ALANINE AMINOTRANSFERASE 34.6 U/L (0-50); ALBUMIN 4.16 g/dL (3.5-5.0); ALKALINE PHOSPHATASE 85.6 U/L (56-119); ASPARTATE AMINO TRANSFERASE 37.2 U/L (17-59); BILIRUBIN,TOTAL 0.84 mg/dL (0.2-1.3); BLOOD UREA NITROGEN 21.1 mg/dL (9-20); CALCIUM 8.23 mg/dL (8.4-10.2); CARBON DIOXIDE 27.7 mmol/L (22-30.0); CHLORIDE 98.7 mmol/L (98-107); CREATININE 0.9 mg/dL (0.60-1.10); GLUCOSE 129.3 mg/dL (74-106); POTASSIUM 3.89 mmol/L (3.5-5.1); SODIUM 134.1 mmol/L (134.5-145); TOTAL PROTEIN 7.5 g/dL (6.3-8.2)
[2023-01-31] MEDS: LASIX TAB PO SCH (05:50)
[2023-01-31] MEDS ORDERED: LASIX IVP ONE (08:11)
--- NOTE | 2023-01-31 08:12 | ECHO2D ---
Date of Exam: 01/28/2023 Ordering Physician: DR. KEISHA KNUTSON Room #: 109 Reason for Echo: A-FIB, CHF, HTN M-Mode Normal Adult Results LV Dimensions Normal Adult Results AoV Opening excursions >1.6 >1.6 LVEDD-base- 3.5-5.8 6.4 Ao root dimensions 2.0-3.7 3.9 LVESD-base- 3.1-4.6 L. Atrium dimensions 1.9-3.8 5.4 Post. Wall thickness 0.8-1.1 1.3 IV septum (thickness) 0.7-1.2 1.3 Post. Wall excursion 0.72-1.3 0.9 Septal motion 0.5 Systolic motion R. Ventricular cavity 1.5-2.0 NORMAL LVEF 60% 43% Paradoxical septal wall motion NORMAL 2-D : ENLARGED LEFT ATRIAL AND LEFT VENTRICLE CAVITIES, VALVES NORMAL, NO EFFUSION, NO THROMBUS, HYPOKINETIC SEPTAL WALL M-MODE: MV: NORMAL AV: NORMAL TV: NORMAL PV: CHAMBER SIZE: ENLARGED LEFT ATRIAL AND LEFT VENTRICLE CAVITIES WALL MOTION: HYPOKINETIC SEPTAL WALL PERICARDIUM: NORMAL INTERPRETATION: 1. LEFT VENTRICLE HYPERTROPHY 2. ENLARGED LEFT VENTRICLE AND LEFT ATRIAL CAVITIES 3. HYPOKINETIC SEPTAL WALL--EJECTION FRACTION 43% 4. VALVES --NORMAL MTDD
--- NOTE | 2023-01-31 09:14 | PCM.PROG ---
Attending Provider: ATTENDING PROVIDER: Dr. KEISHA KNUTSON MD This patient is seen with Cami Parker, Nurse Practitioner. DATE OF SERVICE: 01/31/23 SUBJECTIVE: This 67 year old /WHITE M was hospitalized 01/27/23. States he is less short of breath. Weight seems to be inconsistent. He has been getting up, still wearing oxygen. We will do an ABG on room air today. Persistent atrial fibrillation and tolerating Eliquis. REVIEW OF SYSTEMS: CONSTITUTIONAL: No night sweats. No fatigue, malaise, lethargy. No fever or chills. Weakness. HEENT: Eyes: No visual changes. No eye pain. No eye discharge. ENT: No runny nose. No epistaxis. No sinus pain. No odynophagia. No congestion. RESPIRATORY: No cough, no congestion. No hemoptysis. Shortness of breath. CARDIOVASCULAR: No angina symptoms. No CHF symptoms. No atypical chest pain for CAD. No palpitations. No orthopnea.. GASTROINTESTINAL: No abdominal pain. No nausea or vomiting. No diarrhea or constipation. No hematemesis. No hematochezia. GENITOURINARY: No urgency. No frequency. No dysuria. No hematuria. No obstructiv e symptoms. No discharge. No pain. No significant abnormal bleeding. MUSCULOSKELETAL: No musculoskeletal pain; no joint swelling. NEUROLOGICAL: Awake, alert, oriented to time, place and person. No headache. No neck pain. No syncope. No seizures. No dizziness. PSYCHIATRIC: Not anxious. No depression. No suicidal thoughts. No homicidal thoughts. SKIN: No rash. No lesions. No wounds. ENDOCRINE: No unexplained weight loss. No weight gain. HEMATOLOGIC/LYMPHATIC: No anemia. No purpura. No petechiae. No prolonged or excessive bleeding. No palpable lymph nodes. PHYSICAL EXAMINATION: GENERAL: The patient is awake, alert and oriented, sitting in bed in no distress. VITAL SIGNS: Temperature 96.8 F, Pulse 62, Respiratory Rate 16, BP 101/66, Pulse Ox 97% HEENT: Head normocephalic, atraumatic. Eyes: Extraocular muscles are intact. Pupils are equal, round and reactive to light and accommodation. Ears: No lesions. Nose appeared normal. Throat: No exudate or erythema. NECK: Supple. No JVD, no carotid bruit. No lymphadenopathy or thyromegaly. LUNGS: Diminished breath sounds. Clear to auscultation. Percussion note normal. Chest symmetrical. HEART: Irregular heart rate. S1, S2, no S3. No murmurs. No cyanosis or clubbing. No ascites. Pulses: Dorsalis pedis and posterior tibial pulses +1 to +2 both sides. ABDOMEN: Soft. Non-tender. Bowel sounds active. No CVA tenderness. No mass felt. EXTREMITIES: No edema. Full range of motion of all extremities, equal. NEUROLOGIC: No focal deficit. Cranial nerves II through XII are grossly intact. No headache. No double vision. SKIN: Not dry. Intact. Turgor-normal. LYMPHATIC: No palpable lymph nodes/no lymphedema. MUSCULOSKELETAL: Normal joints with no swelling. Muscle tone is normal. LAB REVIEW: 01/31/23 05:19 01/31/23 05:19 01/31/23 05:19: Sodium 134.1 L, Potassium 3.89, Chloride 98.7, Carbon Dioxide 27.7, Anion Gap 11.59, BUN 21.1 H, Creatinine 0.90, Estimated GFR (MDRD) 84.00, BUN/Creatinine Ratio 23.44, Glucose 129.3 H, Calcium 8.23 L, Total Bilirubin 0.84, AST 37.2, ALT 34.6, Alkaline Phosphatase 85.6, Total Protein 7.50, Albumin 4.16, Globulin 3.34, Albumin/Globulin Ratio 1.24 01/31/23 05:19: WBC 7.50, RBC 4.42 L, Hgb 13.4 L, Hct 42.9, MCV 97.1 H, MCH 30.3, MCHC 31.2 L, RDW Coeff of Matilda 14.4, Plt Count 226, Immature Gran % (Auto) 0.7, Neut % (Auto) 69.5, Lymph % (Auto) 17.3, [place] % (Auto) 9.3, Eos % (Auto) 2.5, Baso % (Auto) 0.7, Neut # (Auto) 5.2, Lymph # (Auto) 1.3, [place] # (Auto) 0.7, Eos # (Auto) 0.2, Baso # (Auto) 0.1, Immature Gran # (Auto) 0.1 ASSESSMENT: Please see below. 1. New onset atrial fibrillation 2. Dilated cardiomyopathy with reduced ejection fraction 3. CHF 4. Acute pneumonitis 5. Diabetes Mellitus type II 6. Obesity PLAN: 1. Discontinue oxygen and in an hour do ABG on room air 2. Recheck weight 3. Losartan 50mg once a day 4. Lasix 20mg IV today 5. Monitor output 6. Start Levaquin 500mg PO 7. Make Aldactone twice a day Plan and coordination of the patient's care discussed in the presence of [employer] and nurse. SCRIBED BY: Kaila BAINS scribed while in presence of service performed by Cami Parker APRN on 01/31/23 ([id number])
[2023-01-31 09:26] LABS: ABG O2 HGB 91.4 % (95-100); ABG PH 7.39 (7.35-7.45); COHb 1.6 (0.5-1.5); MetHb 0.5 (0-1.5); TCO2 24.2 (19-24); sO2 90.7 % (94-98); tHb 13.8 g/dl (11.7-17.4)
[2023-01-31] MEDS: TYLENOL PO PRN (09:27)
[2023-01-31] MEDS: FERROUS SULFATE PO SCH (09:27)
[2023-01-31] MEDS: IMDUR PO SCH (09:27)
[2023-01-31] MEDS: LEVAQUIN PO SCH (09:27)
[2023-01-31] MEDS: TOPAMAX PO SCH (09:27)
[2023-01-31] MEDS: ALDACTONE PO SCH ×2 (09:27→21:06)
[2023-01-31] MEDS: K-DUR PO SCH ×2 (09:28→17:32)
[2023-01-31] MEDS: OMEGA-3 FISH OIL PO SCH (09:28)
[2023-01-31] MEDS: LOPRESSOR PO SCH ×2 (09:28→21:06)
[2023-01-31] MEDS: COZAAR PO SCH (09:28)
[2023-01-31] MEDS: ZOCOR PO SCH (09:29)
[2023-01-31] MEDS: ELIQUIS PO SCH ×2 (09:29→21:06)
[2023-01-31] MEDS: HUMULIN R SUBCUT PRN ×2 (12:36→17:33)
[2023-01-31] MEDS: NORCO 5-325 PO PRN (14:13)
--- NOTE | 2023-01-31 14:23 | PN ---
DATE OF SERVICE: 01/31/23 SUBJECTIVE: The patient was seen and examined with the Nurse Practitioner. The patients condition seems to have improved. No symptoms of CHF. PFT shows shows severe restrictive obstructive lung disease. The patient is going to be on inhalers, pulmonary rehab recommended. TIME SPENT: More than 35 minutes. Plan and coordination of the patient's care discussed in the presence of nurse. CARLOS
[2023-01-31] MEDS: CELEXA PO SCH (21:05)
[2023-01-31] MEDS: BENADRYL PO SCH (21:06)
[2023-01-31] MEDS: ATIVAN PO SCH (21:06)
[2023-01-31] MEDS: TYLENOL PO SCH (21:06)
[2023-02-01] MEDS: DUONEB NEB SCH ×2 (04:40→11:12)
[2023-02-01] MEDS: LEVAQUIN PO SCH (05:33)
[2023-02-01] MEDS: LASIX TAB PO SCH (05:33)
[2023-02-01 06:06] LABS: BASOPHILS # (AUTO) 0.1 K/uL (0-0.2); BASOPHILS % (AUTO) 0.8 % (0.0-3.0); EOSINOPHILS # (AUTO) 0.2 K/ul (0.0-0.7); EOSINOPHILS % (AUTO) 2.3 % (0.0-7.0); HEMATOCRIT 44.1 % (42.0-52.0); HEMOGLOBIN 13.9 g/dl (14.0-18.0); IMMATURE GRANULOCYTE # (AUTO) 0.1 (0.0-1.0); IMMATURE GRANULOCYTE % (AUTO) 0.8 % (0.0-5.0); LYMPHOCYTES # (AUTO) 1.5 K/uL (0.60-3.4); LYMPHOCYTES % (AUTO) 18.9 (10.0-50.0); MEAN CORPUSCULAR HEMOGLOBIN 30.8 pg (27.0-31.0); MEAN CORPUSCULAR HGB CONC 31.5 (31.8-35.4); MEAN CORPUSCULAR VOLUME 97.8 fl (80.0-94.0); MONOCYTES # (AUTO) 0.7 K/uL (0.4-2.0); MONOCYTES % (AUTO) 9.3 (0-10); NEUTROPHILS # (AUTO) 5.3 K/ul (2.0-6.9); NEUTROPHILS % (AUTO) 67.9 % (42.2-75.2); PLATELET COUNT 234 10^3/uL (140-440); RDW COEFFICIENT OF VARIATION 14.4 % (11.6-14.8); RED BLOOD COUNT 4.51 10^6/ul (4.70-6.10); WHITE BLOOD COUNT 7.78 K/ul (4.2-10.2)
[2023-02-01 06:49] LABS: ALANINE AMINOTRANSFERASE 36.6 U/L (0-50); ALBUMIN 4.34 g/dL (3.5-5.0); ALKALINE PHOSPHATASE 98.4 U/L (56-119); ASPARTATE AMINO TRANSFERASE 42.3 U/L (17-59); BILIRUBIN,TOTAL 0.93 mg/dL (0.2-1.3); BLOOD UREA NITROGEN 21.7 mg/dL (9-20); CALCIUM 8.95 mg/dL (8.4-10.2); CARBON DIOXIDE 29.7 mmol/L (22-30.0); CHLORIDE 100.7 mmol/L (98-107); CREATININE 0.91 mg/dL (0.60-1.10); GLUCOSE 106.1 mg/dL (74-106); POTASSIUM 4.09 mmol/L (3.5-5.1); SODIUM 135.4 mmol/L (134.5-145); TOTAL PROTEIN 7.78 g/dL (6.3-8.2)
[2023-02-01] MEDS: TYLENOL PO PRN (06:57)
[2023-02-01] MEDS: LOPRESSOR PO SCH (08:57)
[2023-02-01] MEDS: TOPAMAX PO SCH (08:57)
[2023-02-01] MEDS: ALDACTONE PO SCH (08:59)
[2023-02-01] MEDS: K-DUR PO SCH (08:59)
[2023-02-01] MEDS: IMDUR PO SCH (08:59)
[2023-02-01] MEDS: ELIQUIS PO SCH (09:00)
[2023-02-01] MEDS: ZOCOR PO SCH (09:00)
[2023-02-01] MEDS: OMEGA-3 FISH OIL PO SCH (09:00)
[2023-02-01] MEDS: FERROUS SULFATE PO SCH (09:00)
[2023-02-01] MEDS: COZAAR PO SCH (09:03)
[2023-02-01] MEDS: HUMULIN R SUBCUT PRN (10:55)
[2023-02-01] MEDS: NORCO 5-325 PO PRN (13:18)
[2023-02-01 13:55] VITALS: BP 103/64; TEMP 96.3
--- NOTE | 2023-02-04 13:21 | PN ---
01/27/23 : Level 5 Rest of them: Intermediate Final day: D as in discharge MTDD
--- NOTE | 2023-02-04 13:21 | DS ---
DATE OF SERVICE: 02/01/23 FINAL DIAGNOSIS: 1. CHF 2. Atrial fibrillation, new onset 3. Pneumonitis 4. Chronic lung disease 5. Moderate to severe restrictive lung disease 6. Coronary artery disease with history or MA and Stent 7. Coronary bypass surgery,6 years after MA 8. Obesity 9. Hypertension 10.Dyslipidemia 11. Diabetes Mellitus 12.Depression, controlled with Citalopram DISCHARGE INSTRUCTIONS: Discharge home. Followup in Dr. Perez's Office in 5-7 days. MEDICATIONS AT DISCHARGE: Eliquis 5mg PO BID Lasix 20mg PO daily Aldactone 25mg PO twice Losartan from 50mg PO QHS Metformin 1000mg PO daily Proair HFA two puffs QID PRN Isosorbide nitrate Imdur 30mg PO daily Nitroglycerin PRN sublingual for chest pain Simvastatin 40mg PO daily Lorazepam 1mg PO at bedtime Metoprolol 50mg twice a day Topamax 25mg PO daily Hydrocodone 5mg PO TID Citalopram 40mg PO at bedtime DISCONTINUED MEDICATIONS: Aspirin Clopidogrel Hyzaar Potassium LABS: Hgb 13.9, hct 44, WBC 7,700 normal differential, creatinine 0.9, BUN 21, potassium 4. The patient is on home oxygen 2-3 liters cannula per minute. Test for oxygen need; saturation was 96%. DISEASE SPECIFIC EDUCATION: Side effects of Eliquis like GI bleed and intracranial bleed discussed. Advised not to take Eliquis with nonsteroidal antiinflammatory. HOSPITAL COURSE: 67 year old white male hospitalized with hypoxemia associated with cough, congestion and CHF type symptoms and evidence of pneumonitis, CHF with PROBNP of 10,000, also had new onset of atrial fibrillation. The patient was treated with IV Lasix. Aldactone was increased at the time of discharge to 25mg a day. Leg edema and fluid retention subsided. His orthopnea subsided. Bronchitis type of symptoms were better. His PROBNP got somewhat better. He improved clinically. Educated about CHF. Atrial fibrillation with practically normal ventricular response. At time of discharge he was up and about with improved appetite. Education about Eliquis and side effect with intracranial bleed, GI bleed discussed. He is advised not to take any nonsteroidal antiinflammatory and advised to stop taking Plavix and Aspirin. Discharge medications discussed with him. All the diagnosis discussed with him in detail. He will undergo stress echo sestamibi as an outpatient, he declined at present time to have stress test done. He is instructed to come back in 5-7 days on followup. CONDITION: Stable TIME SPENT: 70 minutes MTDD
--- NOTE | 2023-02-04 15:16 | PN ---
DATE OF SERVICE: 02/01/23 SUBJECTIVE: 67 year old white male hospitalized with hypoxemia, possible atrial fib and possibility of pneumonia. The patient's condition has improved. He is up and about. He is short of breath on exertion but much better. No orthopnea. He had no chest pain on admission. REVIEW OF SYSTEMS: CONSTITUTIONAL: No night sweats. No fatigue, malaise, lethargy. No fever or chills. HEENT: Eyes: No visual changes. No eye pain. No eye discharge. ENT: No runny nose. No epistaxis. No sinus pain. No sore throat. No odynophagia. No congestion. RESPIRATORY:Shortness of breath on exertion. CARDIOVASCULAR: No angina symptoms. No CHF symptoms. No atypical chest pain for CAD. No palpitations. No PND. No orthopnea. GASTROINTESTINAL: No abdominal pain. No nausea or vomiting. No diarrhea or constipation. No hematemesis. No hematochezia. GENITOURINARY: No urgency. No frequency. No dysuria. No hematuria. No obstructive symptoms. No discharge. No pain. No significant abnormal bleeding. MUSCULOSKELETAL: No musculoskeletal pain; no joint swelling. NEUROLOGICAL: No headache. No neck pain. No syncope. No seizures. No dizziness. PSYCHIATRIC: Not anxious. No depression. No suicidal thoughts. No homicidal thoughts. SKIN: No rash. No lesions. No wounds. ENDOCRINE: No unexplained weight loss. No weight gain. HEMATOLOGIC/LYMPHATIC: No anemia. No purpura. No petechiae. No prolonged or excessive bleeding. No palpable lymph nodes. PHYSICAL EXAMINATION: GENERAL: The patient is in no distress. VITAL SIGNS: Temperature 98.1, pulse 70, respiratory rate 18, blood pressure 106/74, pulse ox 96% with two liters. HEENT: Head normocephalic, atraumatic. Eyes: Extraocular muscles are intact. Pupils are equal, round and reactive to light and accommodation. Ears: No lesions. Nose appeared normal. Throat: No exudate or erythema. NECK: Supple. No JVD, no carotid bruit. No lymphadenopathy or thyromegaly. LUNGS: Decreased breath sounds but clear. HEART: S1, S2, no S3. ABDOMEN: Soft. EXTREMITIES: No pedal edema. NEUROLOGIC: No focal deficit. Cranial nerves II through XII are grossly intact. No headache. No double vision. SKIN: Not dry. Intact. Turgor - normal. LYMPHATIC: No palpable lymph nodes/no lymphedema. MUSCULOSKELETAL: Normal joints with no swelling. Muscle tone is normal. LABS: Hemoglobin 13.9, hematocrit 44, WBC 7,700, normal differential, creatinine 0.9, BUN 21, potassium 4. ProBNP done second was 2,000 less than first time. ASSESSMENT: 1. CHF seems to have resolved. 2. Right pneumonitis, resolved. He is going to be on Eliquis TIME SPENT: More than 35 minutes. Plan and coordination of the patient's care discussed in the presence of nurse. CARLOS
== END 2023-02-01 15:20 | disposition home or self-care (01) | DRG 189 ==
LOC: ED 10:02 → MEDSURG A 12:09
PROVIDERS: ADMIT Emergency Medicine Emergency Medical Services; ATTEND Internal Medicine
DX: Z20.822 Contact with and (suspected) exposure to COVID-19; F32.A Depression, unspecified; J96.01 Acute respiratory failure with hypoxia; Z68.28 Body mass index [BMI] 28.0-28.9, adult; I11.0 Hypertensive heart disease with heart failure; J18.9 Pneumonia, unspecified organism; J98.4 Other disorders of lung; R06.02 Shortness of breath; E78.5 Hyperlipidemia, unspecified; I50.9 Heart failure, unspecified; I48.91 Unspecified atrial fibrillation; Z98.84 Bariatric surgery status; Z79.899 Other long term (current) drug therapy; Z95.5 Presence of coronary angioplasty implant and graft; E66.9 Obesity, unspecified; E87.6 Hypokalemia; Z51.81 Encounter for therapeutic drug level monitoring; Z79.84 Long term (current) use of oral hypoglycemic drugs; I25.10 Atherosclerotic heart disease of native coronary artery without angina pectoris

== ENCOUNTER 2023-02-09 12:01 | Inpatient (IN) ==
--- NOTE | 2023-02-09 12:14 | ED.PDOC ---
General ED Provider: Dr. EDITH PEREZ MD Chief Complaint: Respiratory Complaint Stated Complaint: Patient discharged from the hospital one week ago following admission for pneumonia and CHF. He presents now with continued dyspnea, generalized weakness, edema, poor appetite, fatigue and palpitations. Time Seen by Provider: 02/09/23 12:02 Mode of Arrival: Wheelchair Information Source: Patient Primary Care Provider: KEISHA KNUTSON MD Nursing and Triage Documentation Reviewed and Agree: Yes Does patient meet sepsis criteria?: No System Inflammatory Response Syndrome: Not Applicable Sepsis Protocol: For patient's 13 years and over: Temp is 96.8 and below OR 101 and greater Pulse >90 BPM Resp >20/minute Acutely Altered Mental Status Are patient's symptoms suggestive of a new infection, such as: -Pneumonia -Skin, Soft Tissue -Endocarditis -UTI -Bone, Joint Infection -Implantable Device -Acute Abdominal Infection -Wound Infection -Meningitis -Blood Stream Catheter Infection -Unknown Review of Systems Review Of Systems Constitutional: Reports Weakness and Loss of appetite Eyes: Reports No symptoms Ears, Nose, Mouth, Throat: Reports No symptoms Respiratory: Reports Short of air Cardiac: Reports Edema and Irregular heart rate GI: Reports Poor appetite : Reports No symptoms Musculoskeletal: Reports No symptoms Skin: Reports No symptoms Neurological: Reports No symptoms Endocrine: Reports No symptoms Hematologic/Lymphatic: Reports No symptoms All Other Systems: Reviewed and Negative [facility] Medical History (Updated 02/09/23 @ 13:26 by EDITH PEREZ MD) CHF (congestive heart failure) Diabetes mellitus Heart attack Hyperlipidemia Hypertension Family History (Updated 01/27/23 @ 13:11 by JOSE IRENE, RN) Mother Cancer Heart attack FATHER Dementia Social History (Updated 01/27/23 @ 13:11 by JOSE IRENE, RN) Smoking and tobacco status: Never smoker Alcohol intake: never Surgical History (Updated 01/29/23 @ 08:03 by MOSHE MAYS) H/O gastric bypass History of coronary angioplasty with insertion of stent History of coronary artery bypass, five Physical Exam Physical Exam Appearance: Reports Ill-appearing, No pain distress and Well-nourished Ill-appearing: Moderate Pain Distress: None Eyes: Reports Not Examined ENT: Reports Nose normal and Oropharynx normal Neck: Supple Respiratory: Reports Airway patent, Breath sounds clear, Breath sounds equal and Breath sounds diminished (bilateral bases) Cardiovascular: Reports No rub, No murmur and Irregular rhythm GI/: Reports Soft, Nontender, No masses and Bowel sounds normal Musculoskeletal: Reports Edema (moderate pitting edema bilaterally to the knees) Skin: Reports Warm and Dry Neurological: Reports Alert and Oriented Psychiatric: Reports Affect appropriate and Mood appropriate Interpretation Radiology Interpretation Radiology Interpretation By: Radiologist Exam Interpreted: Portable CXR (cardiomegaly with vascular congestion ) EKG Interpretation Time of EKG #1: 12:27 Rate: Normal Rhythm: Other (atrial fibrillation) Ectopy: None [place]: NL ST Segment: Normal Interpretation: atrial fibrillation with rate of 69bpm Critical Care Note Critical Care Note Total Critical Care Time (mins): 0 Course Course Hematology/Chemistry: 02/09/23 12:38 02/09/23 12:38 Orders, Labs, Meds: Lab Review 02/09/23 02/09/23 12:38 12:38 WBC 7.74 RBC 4.38 L Hgb 13.4 L Hct 42.4 MCV 96.8 H MCH 30.6 MCHC 31.6 L RDW Coeff of Matilda 14.2 Plt Count 247 Immature Gran % (Auto) 0.6 Neut % (Auto) 79.1 H Lymph % (Auto) 12.7 [place] % (Auto) 6.2 Eos % (Auto) 0.9 Baso % (Auto) 0.5 Neut # (Auto) 6.1 Lymph # (Auto) 1.0 [place] # (Auto) 0.5 Eos # (Auto) 0.1 Baso # (Auto) 0.0 Immature Gran # (Auto) 0.1 Sodium 136.2 Potassium 4.02 Chloride 101.0 Carbon Dioxide 29.2 Anion Gap 10.02 BUN 21.8 H Creatinine 0.82 Estimated GFR (MDRD) 93.00 BUN/Creatinine Ratio 26.58 Glucose 246.0 H Calcium 8.77 Total Bilirubin 0.83 AST 35.2 ALT 23.2 Alkaline Phosphatase 105.8 Troponin I < 0.012 NT-Pro-B Natriuret Pep 27927 H Total Protein 7.60 Albumin 4.08 Globulin 3.52 Albumin/Globulin Ratio 1.15 Orders Category Date Time Status EKG-(ED ONLY) Stat CARDIO 02/09/23 12:20 Completed Saline Lock [ED IV/MEDIPORT/POWERPORT] .ONCE EMERGENCY 02/09/23 12:20 Active CBC W/ AUTO DIFF Stat LAB 02/09/23 12:38 Completed CMP [COMPREHENSIVE METABOLIC PANEL] Stat LAB 02/09/23 12:38 Completed NT-PROBNP(ED) Stat LAB 02/09/23 12:38 Completed TROPONIN I Stat LAB 02/09/23 12:38 Completed 0.9 % Sodium Chloride [Saline Flush] MEDS 02/09/23 12:20 Active 1 syr IVF PRN PRN CXR [CHEST, 1V AP ONLY] Stat RADS 02/09/23 12:20 Completed Medications Generic Name Dose Route Start Last Admin Trade Name Freq PRN Reason Stop Dose Admin Sodium Chloride 1 syr 02/09/23 12:20 0.9% Sodium Chloride 10 Ml Disp.Syrin IVF PRN PRN To flush IV Vital Signs: Temp Pulse Resp BP Pulse Ox 02/09/23 12:01 98.3 F 65 24 H 129/77 93 L Discharge Plan Discharge Patient Disposition: ADMITTED INPATIENT Discharge Problem: Acute exacerbation of congestive heart failure, Atrial fibrillation, Hypoxemia Did you review [place] BUILD TECHNICIAN for ALL controlled substances?: Not Applicable ED Provider: EDITH PEREZ Condition: Fair Physician Progress Note: []
[2023-02-09 12:43] LABS: BASOPHILS % (AUTO) 0.5 % (0.0-3.0); EOSINOPHILS # (AUTO) 0.1 K/ul (0.0-0.7); EOSINOPHILS % (AUTO) 0.9 % (0.0-7.0); HEMATOCRIT 42.4 % (42.0-52.0); HEMOGLOBIN 13.4 g/dl (14.0-18.0); IMMATURE GRANULOCYTE # (AUTO) 0.1 (0.0-1.0); IMMATURE GRANULOCYTE % (AUTO) 0.6 % (0.0-5.0); LYMPHOCYTES % (AUTO) 12.7 (10.0-50.0); MEAN CORPUSCULAR HEMOGLOBIN 30.6 pg (27.0-31.0); MEAN CORPUSCULAR HGB CONC 31.6 (31.8-35.4); MEAN CORPUSCULAR VOLUME 96.8 fl (80.0-94.0); MONOCYTES # (AUTO) 0.5 K/uL (0.4-2.0); MONOCYTES % (AUTO) 6.2 (0-10); NEUTROPHILS # (AUTO) 6.1 K/ul (2.0-6.9); NEUTROPHILS % (AUTO) 79.1 % (42.2-75.2); PLATELET COUNT 247 10^3/uL (140-440); RDW COEFFICIENT OF VARIATION 14.2 % (11.6-14.8); RED BLOOD COUNT 4.38 10^6/ul (4.70-6.10); WHITE BLOOD COUNT 7.74 K/ul (4.2-10.2)
--- NOTE | 2023-02-09 12:55 | DI ---
EXAM: CHEST ONE-VIEW HISTORY: Dyspnea COMPARISON: 01/27/2023 FINDINGS: The pulmonary vascular markings are slightly indistinct. The cardiac silhouette is modera tely enlarged. This may represent mild or early changes of pulmonary vascular congestion wires prese nt previous median sternotomy IMPRESSION: Cardiomegaly with slightly indistinct pulmonary vascular margins suspicious for mild pul monary vascular congestion
[2023-02-09 13:09] LABS: ALANINE AMINOTRANSFERASE 23.2 U/L (0-50); ALBUMIN 4.08 g/dL (3.5-5.0); ALKALINE PHOSPHATASE 105.8 U/L (56-119); ASPARTATE AMINO TRANSFERASE 35.2 U/L (17-59); BILIRUBIN,TOTAL 0.83 mg/dL (0.2-1.3); BLOOD UREA NITROGEN 21.8 mg/dL (9-20); CALCIUM 8.77 mg/dL (8.4-10.2); CARBON DIOXIDE 29.2 mmol/L (22-30.0); CREATININE 0.82 mg/dL (0.60-1.10); POTASSIUM 4.02 mmol/L (3.5-5.1); SODIUM 136.2 mmol/L (134.5-145)
[2023-02-09 13:13] LABS: TROPONIN I < 0.012 ng/ml (0.0000-0.120)
[2023-02-09] MEDS ORDERED: NITROSTAT SL PRN ×2 (13:31→15:11)
[2023-02-09] MEDS ORDERED: VENTOLIN HFA (PER PUFF-WITH SPACER) IH PRN (13:31)
[2023-02-09] MEDS ORDERED: HYDROCODONE ACETAMINOPHEN PO PRN (13:33)
[2023-02-09] MEDS ORDERED: LASIX IVP ONE (13:34)
[2023-02-09] MEDS ORDERED: LASIX IVP STA (13:38)
--- NOTE | 2023-02-09 13:45 | PCM ---
Chief Complaint Chief Complaint: dyspnea, generalized weakness History of Present Illness History of Present Illness: Patient discharged from hospital one week ago after being treated for pneumonia, acute CHF, new onset atrial fibrillation. He returns now with worsening dyspnea, generalized weakness, poor appetite and hypoxemia. CXR and BNP consistent with CHF. Prior left sided pneumonia has cleared. Review of Systems Constitutional: Reports Weakness, Fatigue and Loss of appetite Eyes: Reports No symptoms Ears: Reports No symptoms Nose: Reports No symptoms Throat: Reports No symptoms Mouth: Reports No symptoms Respiratory: Reports Shortness of air Cardiovascular: Reports Orthopnea and Edema Gastrointestinal: Reports No symptoms Genitourinary: Reports No symptoms Neurological: Reports No symptoms Musculoskeletal: Reports No symptoms Skin: Reports No symptoms Immunology: Reports No symptoms Hematology: Reports No symptoms Endocrine: Reports No symptoms Psychiatric: Reports No symptoms Habits: Denies Tobacco use, Substance use, Alcohol use or Other Allergies Allergies Allergy/AdvReac Type Severity Reaction Status Date / Time No Known Allergies Allergy Verified 01/27/23 10:30 [facility] Medical History (Updated 02/09/23 @ 13:44 by EDITH PEREZ MD) CHF (congestive heart failure) Diabetes mellitus Heart attack Hyperlipidemia Hypertension Surgical History (Updated 01/29/23 @ 08:03 by MOSHE MAYS) H/O gastric bypass History of coronary angioplasty with insertion of stent History of coronary artery bypass, five Family History (Updated 01/27/23 @ 13:11 by JOSE IRENE, RN) Mother Cancer Heart attack FATHER Dementia Social History (Updated 01/27/23 @ 13:11 by JOSE IRENE, RN) Smoking and tobacco status: Never smoker Alcohol intake: never Medications Medications: Medications Generic Name Dose Route Start Last Admin Trade Name Freq PRN Reason Stop Dose Admin Albuterol Sulfate 2 puff 02/09/23 13:31 Albuterol Sulfate (Ventolin Hfa) 18 Gm 1 Puff With Spacer IH QID PRN Wheezing Apixaban 5 mg 02/09/23 21:00 Apixaban 5 Mg Tab PO BID DONTA Citalopram Hydrobromide 40 mg 02/09/23 21:00 Citalopram Hydrobromide 20 Mg Tablet PO BEDTIME DONTA Isosorbide Mononitrate 30 mg 02/10/23 09:00 Isosorbide Mononitrate 30 Mg Tab.Er.24h PO DAILY DONTA Lorazepam 1 mg 02/09/23 21:00 Lorazepam 1 Mg Tablet PO BEDTIME [facility] Losartan Potassium 50 mg 02/10/23 09:00 Losartan Potassium 25 Mg Tablet PO QAM [facility] Metformin HCl 1,000 mg 02/10/23 09:00 Metformin Hcl 500 Mg Tablet PO DAILY [facility] Metoprolol Tartrate 50 mg 02/09/23 21:00 Metoprolol Tartrate 50 Mg Tablet PO BID [facility] Nitroglycerin 0.4 mg 02/09/23 13:31 Nitroglycerin 0.4 Mg Tab.Subl SL PRN PRN Chest Pain Non-Formulary Medication 325 mg 02/10/23 09:00 Ferrous Sulfate PO DAILY DONTA Non-Formulary Medication 1,000 mg 02/09/23 21:00 Diphenhydramine-Acetaminophen [Tylenol Pm Extra Strength] PO BEDTIME DONTA Non-Formulary Medication 1 tab 02/09/23 13:33 Hydrocodone-Acetaminophen PO TID PRN MODERATE PAIN Sodium Chloride 1 syr 02/09/23 12:20 0.9% Sodium Chloride 10 Ml Disp.Syrin IVF PRN PRN To flush IV Spironolactone 25 mg 02/09/23 21:00 Spironolactone 25 Mg Tablet PO BID DONTA Topiramate 25 mg 02/09/23 14:00 Topiramate 50 Mg Tablet PO QDAY [facility] Body Composition Height: 6 ft 2 in Weight: 99.79 kg Body Mass Index (BMI): 28.2 Vital Signs Temperature: 98.3 F Pulse Rate: 65 Respiratory Rate: 24 Blood Pressure: 129/77 O2 Sat by Pulse Oximetry: 93 Physical Examination Appearance: Reports Ill-appearing, No pain distress and Obese Ill-appearing: Moderate Pain Distress: None Eyes: Reports Not Examined ENT: Reports Nose normal and Oropharynx normal Neck: Supple Respiratory: Reports Airway patent, Breath sounds clear, Breath sounds equal and Breath sounds diminished (bilateral bases) Cardiovascular: Reports No rub, No murmur, Irregular rhythm and Other (moderate pitting edema bilateral LEs to the knees) GI/: Reports Soft, Nontender, No masses, Bowel sounds normal and No Organomegaly Musculoskeletal: Reports Normal strength and ROM intact Skin: Reports Warm, Dry and Normal color Neurological: Reports Alert and Oriented Psychiatric: Reports Affect appropriate and Mood appropriate Lab/Tests/Diagnostic Imaging Lab/Tests/Diagnostic Imaging: Lab Review 02/09/23 02/09/23 12:38 12:38 WBC 7.74 RBC 4.38 L Hgb 13.4 L Hct 42.4 MCV 96.8 H MCH 30.6 MCHC 31.6 L RDW Coeff of Matilda 14.2 Plt Count 247 Immature Gran % (Auto) 0.6 Neut % (Auto) 79.1 H Lymph % (Auto) 12.7 [place] % (Auto) 6.2 Eos % (Auto) 0.9 Baso % (Auto) 0.5 Neut # (Auto) 6.1 Lymph # (Auto) 1.0 [place] # (Auto) 0.5 Eos # (Auto) 0.1 Baso # (Auto) 0.0 Immature Gran # (Auto) 0.1 Sodium 136.2 Potassium 4.02 Chloride 101.0 Carbon Dioxide 29.2 Anion Gap 10.02 BUN 21.8 H Creatinine 0.82 Estimated GFR (MDRD) 93.00 BUN/Creatinine Ratio 26.58 Glucose 246.0 H Calcium 8.77 Total Bilirubin 0.83 AST 35.2 ALT 23.2 Alkaline Phosphatase 105.8 Troponin I < 0.012 NT-Pro-B Natriuret Pep 22467 H Total Protein 7.60 Albumin 4.08 Globulin 3.52 Albumin/Globulin Ratio 1.15 Orders Category Date Time Status ADMIT PATIENT INPATIENT .TO MEDSURG (MONITORED BED) ADMISSION 02/09/23 13:34 Active EKG-(ED ONLY) Stat CARDIO 02/09/23 12:20 Completed METERED DOSE INHALATION Routine CARDIO 02/09/23 13:31 Ordered OXYGEN Routine CARDIO 02/09/23 13:35 Ordered ACTIVITY .Up With Assistance CARE 02/09/23 13:34 Active BLOOD GLUCOSE MONITORING (MED/SURG) 0630,1100,1700,2100 CARE 02/09/23 13:36 Active GIVE HS SNACK 2100 CARE 02/09/23 13:35 Active INTAKE & OUTPUT Q8HR CARE 02/09/23 13:35 Active IP: INSERT SALINE LOCK ONCE CARE 02/09/23 13:35 Active REMINDER: Give Insulin if Needed 0630,1100,1700,2100 CARE 02/09/23 13:34 Active TELEMETRY MONITORING TELE CARE 02/09/23 13:35 Active VITAL SIGNS Q8HR CARE 02/09/23 13:35 Active ADA 1800 DUNG. DIET DIETARY 02/09/23 Lunch Ordered HS SNACK DIETARY 02/09/23 Dinner Ordered Saline Lock [ED IV/MEDIPORT/POWERPORT] .ONCE EMERGENCY 02/09/23 12:20 Active CBC W/ AUTO DIFF DAILY@0600 LAB 02/10/23 06:00 Ordered CBC W/ AUTO DIFF DAILY@0600 LAB 02/11/23 06:00 Ordered CBC W/ AUTO DIFF Stat LAB 02/09/23 12:38 Completed CMP [COMPREHENSIVE METABOLIC PANEL] Stat LAB 02/09/23 12:38 Completed COMPREHENSIVE METABOLIC PANEL DAILY@0600 LAB 02/10/23 06:00 Ordered COMPREHENSIVE METABOLIC PANEL DAILY@0600 LAB 02/11/23 06:00 Ordered COVID [SARS COV-2 RNA RAPID JORGE] Stat LAB 02/09/23 13:32 Received NT-PROBNP(ED) Stat LAB 02/09/23 12:38 Completed TROPONIN I Stat LAB 02/09/23 12:38 Completed 0.9 % Sodium Chloride [Saline Flush] MEDS 02/09/23 12:20 Active 1 syr IVF PRN PRN Albuterol Inhaler(with Spacer) [Ventolin Hfa (Per Puff- MEDS 02/09/23 13:31 Ordered with Spacer)] 2 puff IH QID PRN Apixaban [Eliquis] MEDS 02/09/23 21:00 Ordered 5 mg PO BID Citalopram Hydrobromide [Celexa] MEDS 02/09/23 21:00 Ordered 40 mg PO BEDTIME Furosemide [Lasix] MEDS 02/09/23 13:34 Once 40 mg IVP ONCE ONE Furosemide [Lasix] MEDS 02/09/23 13:38 Stat 80 mg IVP ONCE STA Isosorbide Mononitrate [Imdur] MEDS 02/10/23 09:00 Ordered 30 mg PO DAILY Lorazepam [Ativan] MEDS 02/09/23 21:00 Ordered 1 mg PO BEDTIME Losartan Potassium [Cozaar] MEDS 02/10/23 09:00 Ordered 50 mg PO QAM Metformin HCl [Glucophage] MEDS 02/10/23 09:00 Ordered 1,000 mg PO DAILY Metoprolol Tartrate [Lopressor] MEDS 02/09/23 21:00 Ordered 50 mg PO BID Nitroglycerin [Nitrostat] MEDS 02/09/23 13:31 Ordered 0.4 mg SL PRN PRN Spironolactone [Aldactone] MEDS 02/09/23 21:00 Ordered 25 mg PO BID Topiramate [Topamax] MEDS 02/09/23 14:00 Ordered 25 mg PO QDAY diphenhydramine-acetaminophen [Tylenol PM Extra MEDS 02/09/23 21:00 Ordered Strength] 1,000 mg PO BEDTIME ferrous sulfate MEDS 02/10/23 09:00 Ordered 325 mg PO DAILY hydrocodone-acetaminophen MEDS 02/09/23 13:33 Ordered 1 tab PO TID PRN RESUSCITATION STATUS Routine OTHERS 02/09/23 13:34 Ordered CXR [CHEST, 1V AP ONLY] Stat RADS 02/09/23 12:20 Completed Medications Generic Name Dose Route Start Last Admin Trade Name Freq PRN Reason Stop Dose Admin Albuterol Sulfate 2 puff 02/09/23 13:31 Albuterol Sulfate (Ventolin Hfa) 18 Gm 1 Puff With Spacer IH QID PRN Wheezing Apixaban 5 mg 02/09/23 21:00 Apixaban 5 Mg Tab PO BID DONTA Citalopram Hydrobromide 40 mg 02/09/23 21:00 Citalopram Hydrobromide 20 Mg Tablet PO BEDTIME DONTA Isosorbide Mononitrate 30 mg 02/10/23 09:00 Isosorbide Mononitrate 30 Mg Tab.Er.24h PO DAILY DONTA Lorazepam 1 mg 02/09/23 21:00 Lorazepam 1 Mg Tablet PO BEDTIME DONTA Losartan Potassium 50 mg 02/10/23 09:00 Losartan Potassium 25 Mg Tablet PO QAM DONTA Metformin HCl 1,000 mg 02/10/23 09:00 Metformin Hcl 500 Mg Tablet PO DAILY DONTA Metoprolol Tartrate 50 mg 02/09/23 21:00 Metoprolol Tartrate 50 Mg Tablet PO BID DONTA Nitroglycerin 0.4 mg 02/09/23 13:31 Nitroglycerin 0.4 Mg Tab.Subl SL PRN PRN Chest Pain Non-Formulary Medication 325 mg 02/10/23 09:00 Ferrous Sulfate PO DAILY DONTA Non-Formulary Medication 1,000 mg 02/09/23 21:00 Diphenhydramine-Acetaminophen [Tylenol Pm Extra Strength] PO BEDTIME DONTA Non-Formulary Medication 1 tab 02/09/23 13:33 Hydrocodone-Acetaminophen PO TID PRN MODERATE PAIN Sodium Chloride 1 syr 02/09/23 12:20 0.9% Sodium Chloride 10 Ml Disp.Syrin IVF PRN PRN To flush IV Spironolactone 25 mg 02/09/23 21:00 Spironolactone 25 Mg Tablet PO BID DONTA Topiramate 25 mg 02/09/23 14:00 Topiramate 50 Mg Tablet PO QDAY DONTA Discontinued Medications Generic Name Dose Route Start Last Admin Trade Name Freq PRN Reason Stop Dose Admin Furosemide 40 mg 02/09/23 13:34 Furosemide Inj 40 Mg/4 Ml Vial IVP 02/09/23 13:35 ONCE ONE Assessment (1) Acute exacerbation of congestive heart failure: Status: Acute Code(s): I50.9 - Heart failure, unspecified SNOMED Code(s): 803842606 (2) Atrial fibrillation: Status: Acute Code(s): I48.91 - Unspecified atrial fibrillation SNOMED Code(s): 40648576 (3) Hypoxemia: Status: Acute Code(s): R09.02 - Hypoxemia SNOMED Code(s): 539852215 (4) Generalized weakness: Status: Acute Code(s): R53.1 - Weakness SNOMED Code(s): 16186705 (5) Poor appetite: Status: Acute Code(s): R63.0 - Anorexia SNOMED Code(s): 10677743 Plan Plan: Patient will be admitted for diuresis and modification of his heart failure medications. PT will be consulted.
[2023-02-09 14:21] LABS: SARS COV-2 RNA RAPID NAAT NEGATIVE (NEGATIVE)
[2023-02-09] MEDS ORDERED: TYLENOL PO STA (14:33)
[2023-02-09] MEDS ORDERED: ATROPINE SULFATE PFS IVP PRN (15:11)
[2023-02-09] MEDS ORDERED: MORPHINE 2 MG/ML SYRINGE IVP ONE ×2 (15:20→21:00)
[2023-02-09] MEDS ORDERED: DECADRON IVP ONE (15:21)
[2023-02-09 15:41] LABS: CREATINE KINASE 42.3 U/L (55-170)
[2023-02-09 15:44] VITALS: BMI 29.2
[2023-02-09 15:55] LABS: TROPONIN I < 0.012 ng/ml (0.0000-0.120)
[2023-02-09 16:07] LABS: BILIRUBIN,URINE Negative (NEGATIVE); CLARITY,URINE Clear (CLEAR); COLOR,URINE Yellow (YELLOW); GLUCOSE, URINE (UA) Negative (NEGATIVE); KETONES,URINE Negative (NEGATIVE); LEUKOCYTE ESTERASE ,URINE Negative (NEGATIVE); NITRITE,URINE Negative (NEGATIVE); PH,URINE 5.5 (5-9); PROTEIN,URINE Negative (NEGATIVE); URINE, BLOOD Negative (NEGATIVE); UROBILINOGEN,URINE 0.2 (0.2)
[2023-02-09] MEDS ORDERED: DIPHENHYDRAMINE ACETAMINOPHEN PO SCH (21:00)
[2023-02-09] MEDS: ATIVAN PO SCH (21:01)
[2023-02-09] MEDS: ALDACTONE PO SCH (21:01)
[2023-02-09] MEDS: BENADRYL PO SCH (21:02)
[2023-02-09] MEDS: LOPRESSOR PO SCH (21:02)
[2023-02-09] MEDS: TYLENOL PO PRN (21:02)
[2023-02-09] MEDS: ELIQUIS PO SCH (21:03)
[2023-02-09] MEDS: CELEXA PO SCH (21:03)
[2023-02-09] MEDS: TYLENOL PO SCH (21:10)
[2023-02-09 23:38] LABS: CREATINE KINASE 41.3 U/L (55-170)
[2023-02-09 23:52] LABS: TROPONIN I < 0.012 ng/ml (0.0000-0.120)
[2023-02-10 04:37] LABS: BASOPHILS % (AUTO) 0.3 % (0.0-3.0); EOSINOPHILS % (AUTO) 0.2 % (0.0-7.0); HEMATOCRIT 40.6 % (42.0-52.0); IMMATURE GRANULOCYTE # (AUTO) 0.1 (0.0-1.0); IMMATURE GRANULOCYTE % (AUTO) 0.8 % (0.0-5.0); LYMPHOCYTES # (AUTO) 0.7 K/uL (0.60-3.4); LYMPHOCYTES % (AUTO) 9.9 (10.0-50.0); MEAN CORPUSCULAR HEMOGLOBIN 30.4 pg (27.0-31.0); MEAN CORPUSCULAR VOLUME 94.9 fl (80.0-94.0); MONOCYTES # (AUTO) 0.5 K/uL (0.4-2.0); MONOCYTES % (AUTO) 7.4 (0-10); NEUTROPHILS # (AUTO) 5.4 K/ul (2.0-6.9); NEUTROPHILS % (AUTO) 81.4 % (42.2-75.2); PLATELET COUNT 249 10^3/uL (140-440); RDW COEFFICIENT OF VARIATION 13.9 % (11.6-14.8); RED BLOOD COUNT 4.28 10^6/ul (4.70-6.10); WHITE BLOOD COUNT 6.65 K/ul (4.2-10.2)
[2023-02-10 04:51] LABS: ALANINE AMINOTRANSFERASE 23.7 U/L (0-50); ALBUMIN 3.92 g/dL (3.5-5.0); ALKALINE PHOSPHATASE 101.7 U/L (56-119); ASPARTATE AMINO TRANSFERASE 34.1 U/L (17-59); BILIRUBIN,TOTAL 0.61 mg/dL (0.2-1.3); BLOOD UREA NITROGEN 19.4 mg/dL (9-20); CALCIUM 8.86 mg/dL (8.4-10.2); CARBON DIOXIDE 30.7 mmol/L (22-30.0); CHLORIDE 99.7 mmol/L (98-107); CREATININE 0.75 mg/dL (0.60-1.10); GLUCOSE 252.4 mg/dL (74-106); POTASSIUM 4.05 mmol/L (3.5-5.1); SODIUM 133.8 mmol/L (134.5-145); TOTAL PROTEIN 7.18 g/dL (6.3-8.2)
[2023-02-10] MEDS ORDERED: LASIX IVP SCH (06:30)
[2023-02-10] MEDS ORDERED: GLUCOPHAGE PO SCH (08:30)
[2023-02-10] MEDS ORDERED: NON-FORMULARY MEDICATION (Ferrous Sulfate 325 MG tablet) PO SCH (09:00)
[2023-02-10] MEDS: LOPRESSOR PO SCH ×2 (09:07→20:53)
[2023-02-10] MEDS: IMDUR PO SCH (09:07)
[2023-02-10] MEDS: ALDACTONE PO SCH ×2 (09:07→20:53)
[2023-02-10] MEDS: FERROUS SULFATE PO SCH (09:07)
[2023-02-10] MEDS: TOPAMAX PO SCH (09:07)
[2023-02-10] MEDS: ELIQUIS PO SCH ×2 (09:07→20:54)
[2023-02-10] MEDS: COZAAR PO SCH (09:08)
[2023-02-10] MEDS: NORCO 5-325 PO PRN (09:17)
[2023-02-10] MEDS: HUMULIN R SUBCUT PRN ×2 (12:42→17:21)
[2023-02-10] MEDS ORDERED: COZAAR PO ONE (14:00)
[2023-02-10] MEDS: ZITHROMAX PO SCH (14:12)
[2023-02-10] MEDS: TYLENOL PO PRN (14:36)
[2023-02-10] MEDS: BENADRYL PO SCH (20:53)
[2023-02-10] MEDS: CELEXA PO SCH (20:53)
[2023-02-10] MEDS: TYLENOL PO SCH (20:54)
[2023-02-10] MEDS: ATIVAN PO SCH (20:54)
[2023-02-11 05:06] LABS: BASOPHILS # (AUTO) 0.1 K/uL (0-0.2); BASOPHILS % (AUTO) 0.7 % (0.0-3.0); EOSINOPHILS # (AUTO) 0.1 K/ul (0.0-0.7); EOSINOPHILS % (AUTO) 1.7 % (0.0-7.0); HEMATOCRIT 40.7 % (42.0-52.0); HEMOGLOBIN 13.1 g/dl (14.0-18.0); IMMATURE GRANULOCYTE % (AUTO) 0.5 % (0.0-5.0); LYMPHOCYTES # (AUTO) 1.6 K/uL (0.60-3.4); LYMPHOCYTES % (AUTO) 19.1 (10.0-50.0); MEAN CORPUSCULAR HEMOGLOBIN 30.8 pg (27.0-31.0); MEAN CORPUSCULAR HGB CONC 32.2 (31.8-35.4); MEAN CORPUSCULAR VOLUME 95.5 fl (80.0-94.0); MONOCYTES # (AUTO) 0.6 K/uL (0.4-2.0); MONOCYTES % (AUTO) 7.9 (0-10); NEUTROPHILS # (AUTO) 5.7 K/ul (2.0-6.9); NEUTROPHILS % (AUTO) 70.1 % (42.2-75.2); PLATELET COUNT 263 10^3/uL (140-440); RDW COEFFICIENT OF VARIATION 14.2 % (11.6-14.8); RED BLOOD COUNT 4.26 10^6/ul (4.70-6.10); WHITE BLOOD COUNT 8.12 K/ul (4.2-10.2)
[2023-02-11 05:18] LABS: ALANINE AMINOTRANSFERASE 28.8 U/L (0-50); ALBUMIN 3.88 g/dL (3.5-5.0); ALKALINE PHOSPHATASE 95.8 U/L (56-119); ASPARTATE AMINO TRANSFERASE 44.3 U/L (17-59); BILIRUBIN,TOTAL 0.61 mg/dL (0.2-1.3); BLOOD UREA NITROGEN 20.9 mg/dL (9-20); CALCIUM 8.82 mg/dL (8.4-10.2); CARBON DIOXIDE 33.2 mmol/L (22-30.0); CHLORIDE 99.4 mmol/L (98-107); CREATININE 0.82 mg/dL (0.60-1.10); GLUCOSE 128.4 mg/dL (74-106); POTASSIUM 3.76 mmol/L (3.5-5.1); SODIUM 135.5 mmol/L (134.5-145); TOTAL PROTEIN 7.03 g/dL (6.3-8.2)
[2023-02-11] MEDS: LASIX TAB PO SCH (05:58)
--- NOTE | 2023-02-11 09:23 | PCM.PROG ---
Attending Provider: ATTENDING PROVIDER: Dr. KEISHA KNUTSON MD This patient is seen with Cami Parker, Nurse Practitioner. DATE OF SERVICE: 02/11/23 SUBJECTIVE: This 67 year old /WHITE M was hospitalized 02/09/23. The patient is resting comfortably. sob has had some weight loss heart rate well-controlled 60 and 70, BP low 110/50's. No leg edema. States he has a cough with green- tinged sputum. REVIEW OF SYSTEMS: CONSTITUTIONAL: Weakness. No night sweats. No fatigue, malaise, lethargy. No fever or chills. HEENT: Eyes: No visual changes. No eye pain. No eye discharge. ENT: No runny nose. No epistaxis. No sinus pain. No odynophagia. No congestion. RESPIRATORY: Cough, shortness of breath. No hemoptysis. CARDIOVASCULAR: No angina symptoms. No CHF symptoms. No atypical chest pain for CAD. No palpitations. No orthopnea.. GASTROINTESTINAL: No abdominal pain. No nausea or vomiting. No diarrhea or constipation. No hematemesis. No hematochezia. GENITOURINARY: No urgency. No frequency. No dysuria. No hematuria. No obstructive symptoms. No discharge. No pain. No significant abnormal bleeding. MUSCULOSKELETAL: No musculoskeletal pain; no joint swelling. NEUROLOGICAL: Awake, alert, oriented to time, place and person. No headache. No neck pain. No syncope. No seizures. No dizziness. PSYCHIATRIC: Not anxious. No depression. No suicidal thoughts. No homicidal thoughts. SKIN: No rash. No lesions. No wounds. ENDOCRINE: No unexplained weight loss. No weight gain. HEMATOLOGIC/LYMPHATIC: No anemia. No purpura. No petechiae. No prolonged or excessive bleeding. No palpable lymph nodes. PHYSICAL EXAMINATION: GENERAL: The patient is awake, alert and oriented, lying/sitting in bed in no distress. VITAL SIGNS: Temperature 97.9 F, Pulse 67, Respiratory Rate 19, BP 102/74, Pulse Ox 96% HEENT: Head normocephalic, atraumatic. Eyes: Extraocular muscles are intact. Pupils are equal, round and reactive to light and accommodation. Ears: No lesions. Nose appeared normal. Throat: No exudate or erythema. NECK: Supple. No JVD, no carotid bruit. No lymphadenopathy or thyromegaly. LUNGS: Diminished breath sounds. Clear to auscultation. Percussion note normal. Chest symmetrical. HEART: Irregular heart rate. S1, S2, no S3. No murmurs. No cyanosis or clubbing. No ascites. Pulses: Dorsalis pedis and posterior tibial pulses +1 to +2 both sides. ABDOMEN: Soft. Non-tender. Bowel sounds active. No CVA tenderness. No mass felt. EXTREMITIES: No edema. Full range of motion of all extremities, equal. NEUROLOGIC: No focal deficit. Cranial nerves II through XII are grossly intact. No headache. No double vision. SKIN: Not dry. Intact. Turgor-normal. LYMPHATIC: No palpable lymph nodes/no lymphedema. MUSCULOSKELETAL: Normal joints with no swelling. Muscle tone is normal. LAB REVIEW: 02/11/23 04:59 02/11/23 04:59 02/11/23 04:59: Sodium 135.5, Potassium 3.76, Chloride 99.4, Carbon Dioxide 33.2 H, Anion Gap 6.66, BUN 20.9 H, Creatinine 0.82, Estimated GFR (MDRD) 93.00, BUN/Creatinine Ratio 25.48, Glucose 128.4 H, Calcium 8.82, Total Bilirubin 0.61, AST 44.3, ALT 28.8, Alkaline Phosphatase 95.8, Total Protein 7.03, Albumin 3.88, Globulin 3.15, Albumin/Globulin Ratio 1.23 02/11/23 04:59: WBC 8.12, RBC 4.26 L, Hgb 13.1 L, Hct 40.7 L, MCV 95.5 H, MCH 30.8, MCHC 32.2, RDW Coeff of Matilda 14.2, Plt Count 263, Immature Gran % (Auto) 0.5, Neut % (Auto) 70.1, Lymph % (Auto) 19.1, [place] % (Auto) 7.9, Eos % (Auto) 1.7, Baso % (Auto) 0.7, Neut # (Auto) 5.7, Lymph # (Auto) 1.6, [place] # (Auto) 0.6, Eos # (Auto) 0.1, Baso # (Auto) 0.1, Immature Gran # (Auto) 0.0 ASSESSMENT: Please see below. 1. Acute CHF 2. Acute bronchitis 3. Acute COPD exacerbation 4. Acute respiratory failure 5. Shortness of breath PLAN: 1. CT scan of chest w/wo. 2. BNP repeat. 3. Symbicort 160 two puffs b.i.d. 4. Anoro daily. Plan and coordination of the patient's care discussed in the presence of Marine Pipefitter and nurse. CONDITION: Stable TIME SPENT: 35 minutes SCRIBED BY: OLIVIER MEDELLIN Rivet Machine Operator scribed while in presence of service performed by Cami Parker APRN on 02/11/23 ([id number])
[2023-02-11] MEDS: NORCO 5-325 PO PRN (11:38)
--- NOTE | 2023-02-11 11:40 | HP ---
DATE OF SERVICE: 02/09/23 REASON FOR HOSPITALIZATION: Acute shortness of breath, CHF. HISTORY OF PRESENT ILLNESS: 67-year-old white male came to the emergency room with onset of shortness of breath with cough and symptoms consistent with CHF of three days duration. The patient was recently discharged from the hospital after being treated for pneumonia and CHF. The patient felt good for 2 to 3 days at home then his condition started deteriorating. The patient's BNP was nearly 10,000 in the emergency room. PAST MEDICAL HISTORY: CHF History of pneumonia recently Diabetes Mellitus Dyslipidemia Coronary artery disease with stent Coronary artery bypass surgery Atrial fibrillation, recent onset Hypertension Dyslipidemia History of dilated cardiomyopathy COPD Hepatomegaly Splenomegaly Symptomatic gallstones Status post gastric bypass REVIEW OF SYSTEMS: CONSTITUTIONAL: Fatigue and weakness. No night sweats. No malaise, lethargy. No fever or chills. HEENT: Eyes: No visual changes. No eye pain. No eye discharge. ENT: No runny nose. No epistaxis. No sinus pain. No sore throat. No odynophagia. No ear pain. No congestion. RESPIRATORY: Mild cough. No hemoptysis. CARDIOVASCULAR: Shortness of breath, orthopnea. No angina symptoms. No CHF symptoms. No atypical chest pain for CAD. No palpitations. No PND. GASTROINTESTINAL: Appetite is not that good for the past 2 to 3 days. No abdominal pain. No nausea or vomiting. No diarrhea or constipation. No hematemesis. No hematochezia. GENITOURINARY: No urgency. No frequency. No dysuria. No hematuria. No obstructive symptoms. No discharge. No pain. No significant abnormal bleeding. MUSCULOSKELETAL: No musculoskeletal pain. No joint swelling. No arthritis. NEUROLOGICAL: No headache. No neck pain. No syncope. No seizures. No dizziness. PSYCHIATRIC: Not anxious. No depression. No suicidal thoughts. No homicidal thoughts. SKIN: No rash. No lesions. No wounds. ENDOCRINE: No unexplained weight loss. No weight gain. HEMATOLOGIC/LYMPHATIC: No anemia. No purpura. No petechiae. No prolonged or excessive bleeding. No palpable lymph nodes. PERSONAL/FAMILY/SOCIAL HISTORY: The patient is nonsmoker, no alcohol abuse, lives alone. He has a son that lives [place] near [facility]. He is doing all activity of daily living. 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 The patient is DNR. MEDICATIONS: Inhaler, ProAir HFA Apixaban Citalopram Ferrous Sulfate Lasix Hydrocodone Isosorbide Mononitrate Lorazepam Losartan Metformin Metoprolol Nitroglycerin Simvastatin Spironolactone ALLERGIES: NKDA PHYSICAL EXAMINATION: GENERAL: The patient is oriented to time, place and person. On admission to the ER was in mild distress. VITAL SIGNS: Temperature 98, pulse 90, respiratory rate 18, blood pressure 138/84. HEENT: Head normocephalic, atraumatic. Eyes: Extraocular muscles are intact. Pupils are equal, round and reactive to light and accommodation. Ears: No lesions. Nose appeared normal. Throat: No exudate or erythema. NECK: Supple. JVP 2 cm, no carotid bruit. No lymphadenopathy or thyromegaly. LUNGS: Few crepitations bilaterally at the bases. Percussion note normal. Chest symmetrical. HEART: S1, S2, questionable S3. No murmur. No cyanosis or clubbing. No ascites. Pulses: Dorsalis pedis and posterior tibial pulses +1 bilaterally. ABDOMEN: Soft. Nontender. Bowel sounds active. No CVA tenderness. No mass felt. EXTREMITIES: Trace edema. Full range of motion of all extremities, equal. NEUROLOGIC: No focal deficit. Cranial nerves II through XII are grossly intact. No headache, no double vision or headache. SKIN: Not dry. Intact. Turgor - normal. LYMPHATIC: No palpable lymph nodes/no lymphedema. MUSCULOSKELETAL: Normal joints with no swelling. Muscle tone is normal. Chest x-ray shows pulmonary congestion. No pneumonia. Arterial blood gases hypoxemia with oxygen saturation 98% on room air. ASSESSMENT: 1. Acute respiratory failure from congestive heart failure. 2. Chronic lung disease. 3. History of CHF with cardiomyopathy. 4. Coronary artery disease with history of stent in 2004. 5. Coronary artery bypass surgery 2013. 6. Status post gastric bypass surgery. 7. Dyslipidemia. 8. Diabetes mellitus. 9. Hypertension. PLAN: 1. Admit the patient. 2. Routine telemetry orders. 3. Oxygen 2 to 3L. 4. IV 40 mg Lasix. 5. The rest of the medications as before. 6. Education about CHF carried out. 7. The patient advised to take his medication on a regular basis. 8. May have to be investigated for coronary artery disease once he is stable. ADDENDUM: The patient's son is present in the room and I examined the patient in the room. He said that he has been having a problem with breathing and orthopnea type of symptoms, hard to sleep at night because of shortness of breath the last 4 to 5 days and he advised to go to the emergency but had declined but had agreed to come back to the emergency room. The patient's EKG shows atrial fibrillation, no acute changes. The patient's cardiac markers are negative for any acute myocardial event. I explained to the son that the patient had stent put in with OR in 2004. After that he had coronary artery bypass surgery, five vessel. A couple of years after that Dr. Godoy had to put in three stents. The patient is noncompliant of lifestyle. He is diabetic. He now has atrial fibrillation. Considering having chronic lung disease, hypertension, dyslipidemia, the patient's prognosis is guarded. The patient is DNI. The son is agreeable with all that. The patient is going to be given 1 cc IV Decadron, 2 mg of Morphine Sulfate now. Another 2 mg will be given at 9 p.m. TIME SPENT: More than 75 minutes. MTDD
[2023-02-11] MEDS ORDERED: DECADRON IVP ONE (11:45)
--- NOTE | 2023-02-11 11:49 | PN ---
DATE OF SERVICE: 02/10/23 SUBJECTIVE: 67-year-old white male hospitalized with CHF exacerbation. The patient's main reason after further questioning and some history from the nurse also stated that he had stopped taking all of his medications as he was getting more short of breath and he thought the medicine was making him worse. The patient also admitted that he was not wearing his oxygen most of the time. In any case, the patient's condition has improved. REVIEW OF SYSTEMS: CONSTITUTIONAL: No night sweats. No fatigue, malaise, lethargy. No fever or chills. HEENT: Eyes: No visual changes. No eye pain. No eye discharge. ENT: No runny nose. No epistaxis. No sinus pain. No sore throat. No odynophagia. No congestion. RESPIRATORY: He is breathing a little better than yesterday. No cough, no congestion. No hemoptysis. No shortness of breath. CARDIOVASCULAR: No angina symptoms. No CHF symptoms. No atypical chest pain for CAD. No palpitations. No PND. No orthopnea. GASTROINTESTINAL: Appetite improved some. No abdominal pain. No nausea or vomiting. No diarrhea or constipation. No hematemesis. No hematochezia. GENITOURINARY: No urgency. No frequency. No dysuria. No hematuria. No obstructive symptoms. No discharge. No pain. No significant abnormal bleeding. MUSCULOSKELETAL: No musculoskeletal pain; no joint swelling. NEUROLOGICAL: No headache. No neck pain. No syncope. No seizures. No dizziness. PSYCHIATRIC: Not anxious. No depression. No suicidal thoughts. No homicidal thoughts. SKIN: No rash. No lesions. No wounds. ENDOCRINE: No unexplained weight loss. No weight gain. HEMATOLOGIC/LYMPHATIC: No anemia. No purpura. No petechiae. No prolonged or excessive bleeding. No palpable lymph nodes. PHYSICAL EXAMINATION: VITAL SIGNS: Temperature 96.9, pulse 68, respiratory rate 19, blood pressure 102/58, pulse ox 96%. HEENT: Head normocephalic, atraumatic. Eyes: Extraocular muscles are intact. Pupils are equal, round and reactive to light and accommodation. Ears: No lesions. Nose appeared normal. Throat: No exudate or erythema. NECK: Supple. No JVD, no carotid bruit. No lymphadenopathy or thyromegaly. LUNGS: Good air entry with practically no crepitation. Decreased breath sounds bilaterally. Clear to auscultation. Percussion note normal. Chest symmetrical. HEART: S1, S2, no S3. No murmurs. No cyanosis or clubbing. No ascites. Pulses: Dorsalis pedis and posterior tibial pulses +1 to +2 bilaterally. ABDOMEN: Soft. No ascites. Nontender. Bowel sounds active. No CVA tenderness. No mass felt. EXTREMITIES: Trace edema. Full range of motion of all extremities, equal. NEUROLOGIC: No focal deficit. Cranial nerves II through XII are grossly intact. No headache. No double vision. SKIN: Not dry. Intact. Turgor - normal. LYMPHATIC: No palpable lymph nodes/no lymphedema. MUSCULOSKELETAL: Normal joints with no swelling. Muscle tone is normal. LABS: Hemoglobin 13, hematocrit 40, WBC 6,600, normal differential. Creatinine 0.7, BUN 19, potassium 4, troponin negative. Pro-BNP on admission 10,000. EKG- atrial fibrillation, no acute changes, unchanged from yesterday. Oximetry 96 to 97% on 2L. ASSESSMENT: 1. CHF seems to be under control. 2. Coronary artery bypass surgery followed by stent placement times 3 one year after that. Prior to that the patient had coronary artery disease with stent in 2004 with history of UT. PLAN: 1. Continue IV Lasix. 2. Continue all other medications. 3. Oxygen. 4. Education about CHF carried out. 5. Losartan was held by the nursing staff because of borderline blood pressure. I advised them to give it because Losartan is being given for kidney protection from diabetes and also as an unloading agent. 6. The patient when goes home advised to wear oxygen as much as he can. Again, CHF discussed in detail and how to manage it at home. TIME SPENT: More than 35 minutes. Plan and coordination of the patient's care discussed in the presence of nurse. CARLOS
[2023-02-11 12:48] LABS: ABG O2 HGB 85.7 % (95-100); ABG PH 7.44 (7.35-7.45); BEecf 7.7 (-2.0-3.0); COHb 2.1 (0.5-1.5); HCO3 31.9 (21-28); MetHb 0.9 (0-1.5); TCO2 33.3 (19-24); sO2 86.5 % (94-98)
[2023-02-11] MEDS: ZITHROMAX PO SCH (13:11)
[2023-02-11] MEDS: ALDACTONE PO SCH ×2 (13:11→20:50)
[2023-02-11] MEDS: COZAAR PO SCH (13:12)
[2023-02-11] MEDS: TOPAMAX PO SCH (13:12)
[2023-02-11] MEDS: FERROUS SULFATE PO SCH (13:14)
[2023-02-11] MEDS: LOPRESSOR PO SCH ×2 (13:14→20:50)
[2023-02-11] MEDS: IMDUR PO SCH (13:14)
[2023-02-11] MEDS: SYMBICORT 160-4.5 MCG INHALER IH SCH ×2 (13:15→21:00)
[2023-02-11] MEDS: ELIQUIS PO SCH ×2 (13:16→20:50)
[2023-02-11] MEDS: ANORO ELLIPTA 62.5-25 MCG INH IH SCH (13:16)
--- NOTE | 2023-02-11 13:48 | CT ---
EXAM: CT CHEST WITHOUT WITH INTRAVENOUS CONTRAST 02/11/2023. MULTI PLANAR REFORMATTED IMAGES OBTAIN ED. HISTORY: Productive cough. Shortness of breath COMPARISON: 02/09/2023 FINDINGS: The heart size appears at the upper limits of normal. There is no pericardial effusion. [id number] bilateral pleural effusions. Bilateral dependent consolidation may represent atele ctasis. Pneumonia not excluded. There is likely a component of mild pulmonary edema. No pneumothorax. Limited views of the upper abdomen shows no acute abnormality. No acute osseous abnormality. IMPRESSION: 1. [id number] bilateral pleural effusions 2. Bilateral dependent consolidation likely due to atelectasis. Pneumonia not excluded. 3. There is likely a component of mild superimposed pulmonary edema. 4. Heart size at the upper limits of normal. All CT scans are performed using dose optimization techniques as appropriate to the performed exam an d include at least one of the following: Automated exposure control, adjustment of the mA and/or kV according t o size, and the use of iterative reconstruction technique.
[2023-02-11] MEDS: HUMULIN R SUBCUT PRN ×2 (17:08→20:49)
[2023-02-11] MEDS: CELEXA PO SCH (20:50)
[2023-02-11] MEDS: ATIVAN PO SCH (20:50)
[2023-02-11] MEDS: TYLENOL PO SCH (20:50)
[2023-02-11] MEDS: BENADRYL PO SCH (20:50)
[2023-02-12 05:03] LABS: BASOPHILS % (AUTO) 0.1 % (0.0-3.0); EOSINOPHILS % (AUTO) 0.4 % (0.0-7.0); HEMATOCRIT 40.7 % (42.0-52.0); IMMATURE GRANULOCYTE % (AUTO) 0.5 % (0.0-5.0); LYMPHOCYTES # (AUTO) 0.6 K/uL (0.60-3.4); LYMPHOCYTES % (AUTO) 7.9 (10.0-50.0); MEAN CORPUSCULAR HEMOGLOBIN 30.4 pg (27.0-31.0); MEAN CORPUSCULAR HGB CONC 31.9 (31.8-35.4); MEAN CORPUSCULAR VOLUME 95.1 fl (80.0-94.0); MONOCYTES # (AUTO) 0.6 K/uL (0.4-2.0); MONOCYTES % (AUTO) 7.2 (0-10); NEUTROPHILS # (AUTO) 6.7 K/ul (2.0-6.9); NEUTROPHILS % (AUTO) 83.9 % (42.2-75.2); PLATELET COUNT 249 10^3/uL (140-440); RDW COEFFICIENT OF VARIATION 14.1 % (11.6-14.8); RED BLOOD COUNT 4.28 10^6/ul (4.70-6.10); WHITE BLOOD COUNT 7.96 K/ul (4.2-10.2)
[2023-02-12 05:18] LABS: ALANINE AMINOTRANSFERASE 30.7 U/L (0-50); ALBUMIN 3.82 g/dL (3.5-5.0); ALKALINE PHOSPHATASE 93.8 U/L (56-119); ASPARTATE AMINO TRANSFERASE 42.6 U/L (17-59); BILIRUBIN,TOTAL 0.59 mg/dL (0.2-1.3); BLOOD UREA NITROGEN 21.9 mg/dL (9-20); CALCIUM 8.98 mg/dL (8.4-10.2); CARBON DIOXIDE 32.4 mmol/L (22-30.0); CREATININE 0.75 mg/dL (0.60-1.10); GLUCOSE 216.7 mg/dL (74-106); POTASSIUM 4.19 mmol/L (3.5-5.1); SODIUM 133.2 mmol/L (134.5-145); TOTAL PROTEIN 7.01 g/dL (6.3-8.2)
[2023-02-12] MEDS: LASIX TAB PO SCH (05:40)
[2023-02-12] MEDS: HUMULIN R SUBCUT PRN ×3 (05:41→17:04)
[2023-02-12] MEDS ORDERED: LASIX IVP ONE (08:04)
--- NOTE | 2023-02-12 09:16 | PCM.PROG ---
Attending Provider: ATTENDING PROVIDER: Dr. KEISHA KNUTSON MD This patient is seen with Cami Parker, Nurse Practitioner. DATE OF SERVICE: 02/12/23 SUBJECTIVE: This 67 year old /WHITE M was hospitalized 02/09/23. The patient is sitting up in the chair, is short of breath. BNP improved. He did have some weight gain, Lasix 20 mg given today. He has appointment scheduled tomorrow with Dr. Zhao. ABG yesterday showed p02 in the 50s. CT scan of chest showed he has moderate to large bilateral pleural effusions likely causing most of his shortness of breath with some pulmonary edema. REVIEW OF SYSTEMS: CONSTITUTIONAL: Weakness. No night sweats. No fatigue, malaise, lethargy. No fever or chills. HEENT: Eyes: No visual changes. No eye pain. No eye discharge. ENT: No runny nose. No epistaxis. No sinus pain. No odynophagia. No congestion. RESPIRATORY: Cough. Shortness of breath. No hemoptysis. CARDIOVASCULAR: No angina symptoms. No CHF symptoms. No atypical chest pain for CAD. No palpitations. No orthopnea.. GASTROINTESTINAL: No abdominal pain. No nausea or vomiting. No diarrhea or constipation. No hematemesis. No hematochezia. GENITOURINARY: No urgency. No frequency. No dysuria. No hematuria. No obstructive symptoms. No discharge. No pain. No significant abnormal bleeding. MUSCULOSKELETAL: No musculoskeletal pain; no joint swelling. NEUROLOGICAL: Awake, alert, oriented to time, place and person. No headache. No neck pain. No syncope. No seizures. No dizziness. PSYCHIATRIC: Not anxious. No depression. No suicidal thoughts. No homicidal thoughts. SKIN: No rash. No lesions. No wounds. ENDOCRINE: No unexplained weight loss. No weight gain. HEMATOLOGIC/LYMPHATIC: No anemia. No purpura. No petechiae. No prolonged or excessive bleeding. No palpable lymph nodes. PHYSICAL EXAMINATION: GENERAL: The patient is awake, alert and oriented, lying/sitting in bed in no distress. VITAL SIGNS: Temperature 97.4 F, Pulse 76, Respiratory Rate 18, BP 120/77, Pulse Ox 93% HEENT: Head normocephalic, atraumatic. Eyes: Extraocular muscles are intact. Pupils are equal, round and reactive to light and accommodation. Ears: No lesions. Nose appeared normal. Throat: No exudate or erythema. NECK: Supple. No JVD, no carotid bruit. No lymphadenopathy or thyromegaly. LUNGS: Diminished breath sounds. Clear to auscultation. Percussion note normal. Chest symmetrical. HEART: S1, S2, no S3. Grade I murmur. Irregular heart rate. No cyanosis or clubbing. No ascites. Pulses: Dorsalis pedis and posterior tibial pulses +1 to +2 both sides. ABDOMEN: Soft. Non-tender. Bowel sounds active. No CVA tenderness. No mass felt. EXTREMITIES: No edema. Full range of motion of all extremities, equal. NEUROLOGIC: No focal deficit. Cranial nerves II through XII are grossly intact. No headache. No double vision. SKIN: Not dry. Intact. Turgor-normal. LYMPHATIC: No palpable lymph nodes/no lymphedema. MUSCULOSKELETAL: Normal joints with no swelling. Muscle tone is normal. LAB REVIEW: 02/12/23 04:58 02/12/23 04:58 02/12/23 04:58: Sodium 133.2 L, Potassium 4.19, Chloride 98.0, Carbon Dioxide 32 .4 H, Anion Gap 6.99, BUN 21.9 H, Creatinine 0.75, Estimated GFR (MDRD) 104.00, BUN/Creatinine Ratio 29.20, Glucose 216.7 H D, Calcium 8.98, Total Bilirubin 0.59, AST 42.6, ALT 30.7, Alkaline Phosphatase 93.8, Total Protein 7.01, Albumin 3.82, Globulin 3.19, Albumin/Globulin Ratio 1.19 02/12/23 04:58: WBC 7.96, RBC 4.28 L, Hgb 13.0 L, Hct 40.7 L, MCV 95.1 H, MCH 30.4, MCHC 31.9, RDW Coeff of Matilda 14.1, Plt Count 249, Immature Gran % (Auto) 0.5, Neut % (Auto) 83.9 H, Lymph % (Auto) 7.9 L, [place] % (Auto) 7.2, Eos % (Auto) 0.4, Baso % (Auto) 0.1, Neut # (Auto) 6.7, Lymph # (Auto) 0.6, [place] # (Auto) 0.6, Eos # (Auto) 0.0, Baso # (Auto) 0.0, Immature Gran # (Auto) 0.0 02/11/23 12:03: Puncture Site Rrad, Base Excess 7.7 H, O2 Saturation 86.5 L, ABG pH 7.44, ABG pCO2 47.0 H, ABG pO2 50.0 L*, ABG HCO3 31.9 H, ABG Total CO2 33.3 H , Mikey Test Pos, Hemoglobin 0.9, Oxyhemoglobin 85.7 L, Carboxyhemoglobin 2.1 H, Total Hemoglobin 14.0, FiO2 % 21.0 02/11/23 04:59: NT-Pro-B Natriuret Pep 7320 H ASSESSMENT: Please see below. 1. Acute respiratory failure 2. Bilateral pleural effusion 3. CHF 4. Dilated cardiomyopathy with Ejection Fraction of 43% 5. Severe COPD PLAN: 1. Lasix 20 mg IV times one. Plan and coordination of the patient's care discussed in the presence of Cricket Coach and nurse. CONDITION: Stable TIME SPENT: 35 minutes. SCRIBED BY: OLIVIER MEDELLIN Validation Manager scribed while in presence of service performed by Cami Parker APRN on 02/12/23 ([id number])
[2023-02-12] MEDS: COZAAR PO SCH (09:48)
[2023-02-12] MEDS: IMDUR PO SCH (09:49)
[2023-02-12] MEDS: TOPAMAX PO SCH (09:49)
[2023-02-12] MEDS: ALDACTONE PO SCH ×2 (09:49→21:25)
[2023-02-12] MEDS: LOPRESSOR PO SCH ×2 (09:49→21:27)
[2023-02-12] MEDS: ZITHROMAX PO SCH (09:49)
[2023-02-12] MEDS: ELIQUIS PO SCH ×2 (09:50→21:31)
[2023-02-12] MEDS: FERROUS SULFATE PO SCH (09:50)
[2023-02-12] MEDS: ANORO ELLIPTA 62.5-25 MCG INH IH SCH (09:52)
[2023-02-12] MEDS: SYMBICORT 160-4.5 MCG INHALER IH SCH ×2 (09:52→21:31)
[2023-02-12] MEDS: TYLENOL PO PRN ×2 (10:11→17:04)
[2023-02-12] MEDS ORDERED: LASIX ONE (10:22)
[2023-02-12 14:41] LABS: ABG O2 HGB 91.4 % (95-100); ABG PH 7.48 (7.35-7.45); BEecf 7.8 (-2.0-3.0); COHb 1.9 (0.5-1.5); HCO3 31.3 (21-28); MetHb 0.7 (0-1.5); TCO2 32.6 (19-24); sO2 92.1 % (94-98); tHb 13.4 g/dl (11.7-17.4)
--- NOTE | 2023-02-12 16:48 | DS ---
DATE OF SERVICE: 02/12/23 FINAL DIAGNOSIS: 1. REFRACTORY CONGESTIVE HEART FAILURE WITH BILATERAL PLEURAL EFFUSION 2. HISTORY OF DILATED CARDIOMYOPATHY LIKELY ISCHEMIC 3. ACUTE BRONCHITIS WITH HISTORY OF CHRONIC LUNG DISEASE 4. ATRIAL FIBRILLATION, ONSET ONE MONTH 5. PAUSES OF 2.5 TO 3 SECONDS, INFREQUENT, BRADYARRHYTHMIAS ON HOLTER MONITOR 6. CORONARY ARTERY BYPASS SURGERY [address] SAUCEDO 7. CARDIAC CATH 09/[address] SAUCEDO, RECOMMENDED MEDICAL MANAGEMENT 8. STATUS POST GASTRIC BYPASS 2000 9. DIABETES MELLITUS TYPE 2 WELL-CONTROLLED, PATIENT'S CHOICE 10. HISTORY OF HYPERTENSION 11. DYSLIPIDEMIA 12. 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 DEPRESSION CONTROLLED WITH CELEXA 15. HISTORY OF B12 DEFICIENCY WITH GASTRIC BYPASS 16. [id number] DISCHARGE INSTRUCTIONS: Followup appointment with Dr. Perez's office on February 19 at 9:20 a.m. Should you have any questions or need to reschedule. MEDICATIONS AT TIME OF TRANSFER: Lasix 40 mg p.o. q.a.m. Aldactone 25 mg p.o. twice a day Entresto 24-26 one tablet twice a day Metoprolol 25 mg b.i.d. Symbicort two puffs twice a day Eliquis 5 mg p.o. twice a day Albuterol inhaler two puffs q.i.d. p.r.n. for pain Allamuchy 5/325 t.i.d. p.r.n. for back pain Lasix 40 mg p.o. q.a.m. Ferrous Sulfate 325 mg p.o. daily Nitroglycerin p.r.n. sublingual for chest pain Lorazepam 1 mg one at bedtime Sliding scale coverage Topamax 25 mg p.o. daily Metformin 1000 mg p.o. daily Celexa at bedtime HOSPITAL COURSE: 59-year-old white male was admitted through the emergency room with complaint of being short of breath and having orthopnea of 3 to 4 days duration. The patient was discharged one week ago after being treated for CHF. At that time, the patient was noted to have new onset atrial fib. During the stay in the hospital the patient lost nearly 7 to 8 lbs, leg edema practically subsided. His breathing got somewhat better, still short of breath on minimal exertion on walking to the bathroom. His peripheral edema had practically subsided with IV Lasix, Aldactone. Continued to have moderate to large amount of pleural effusion. The patient has chronic lung disease with history of asthma. He was never a smoker. Also has a history of coronary artery disease with coronary artery bypass surgery in 2004 with a couple of caths done and thought to be a candidate for medical management. In the past one month his condition has deteriorated with new onset of atrial fibrillation with congestive heart failure. He use to be on Metoprolol 50 mg twice a day and reduced to 25 twice a day after he had some pauses seen on holter monitor, the longest one noted was 2.5 seconds. During this hospital stay the patient was started on Entresto, taken off Losartan. The patient has been on Aldactone 25 mg twice a day for the past 10 to 15 days and started on Lasix. He is on home oxygen. The last echocardiogram showed ejection fraction close to 40 to 45% with hypokinetic septal wall, enlarged LA and LV cavities. The patient is DNR. The patient has been recommended to have evaluation by senior training specialist, Dr. Zhao and who he is being referred to and Dr. Myles Berg for bilateral pleural effusion to which he has agreed. Condition seems to be stable now. Prognosis is guarded. LABS: Cardiac markers negative for any acute myocardial event. Creatinine 0.7, BUN 21, potassium 4.1, hemoglobin 13, hematocrit 40. ABG done on room air on 02/11/23 p02 50, pc02 47, pH 7.44 with 87% saturation. Pro-BNP on admission 10,000, Pro-BNP on 02/11 7,320. The patient is on sliding scale. Blood sugar is running high because of steroids. ADDENDUM: The patient's arterial blood gases done on room air today showed p02 of 59 with pc02 of 42 with pH of 7.48 with 92% saturation. Remarkable improvement from yesterday. The patient says that he is breathing a little better today. In any case, the patient's problem is noncompliance. Last time he was discharged from the hospital one week ago, he didn't wear his oxygen most of the time and was not taking his medication the way he was supposed to. TIME SPENT: 70 minutes MTDD
--- NOTE | 2023-02-12 16:55 | PN ---
DATE OF SERVICE: 02/11/23 SUBJECTIVE: The patient was seen and examined with the nurse practitioner. The patient, besides CHF has acute bronchitis. According to him, the sputum is somewhat white. He was on Z-Pack 500 daily for three days with steroids. The patient is short of breath on minimal exertion. The patient on further questioning indicated that he had coronary artery bypass surgery done first and he was told to have a myocardial infarction by Dr. Sosa. He had five-vessel bypass surgery. Later on he ended up with three stents by Dr. Godoy. Then the patient had no intervention. The patient was recommended further testing and second opinion by health safety coordinator which he has agreed and that he be seen by Dr. Zhao. Advertising Operations Manager is going to make an appointment for him to be checked out by Dr. Zhao. The patient's arterial blood gases on room air shows respiratory failure which seems to be chronic. Respiratory failure is chronic with evidence of moderate chronic lung disease, CHF. He is strongly advised to wear 2L of oxygen/cannula/min as long as he can wear it at home. TIME SPENT: More than 35 minutes. Plan and coordination of the patient's care discussed in the presence of nurse. CARLOS
[2023-02-12] MEDS: ENTRESTO 24 MG-26 MG TABLET PO SCH ×2 (18:17→21:26)
[2023-02-12] MEDS ORDERED: LOPRESSOR PO SCH (21:00)
[2023-02-12] MEDS: CELEXA PO SCH (21:25)
[2023-02-12] MEDS: ATIVAN PO SCH (21:26)
[2023-02-12] MEDS: TYLENOL PO SCH (21:26)
[2023-02-12] MEDS: BENADRYL PO SCH (21:27)
[2023-02-13 05:28] LABS: BASOPHILS % (AUTO) 0.5 % (0.0-3.0); EOSINOPHILS # (AUTO) 0.2 K/ul (0.0-0.7); HEMATOCRIT 42.6 % (42.0-52.0); HEMOGLOBIN 13.5 g/dl (14.0-18.0); IMMATURE GRANULOCYTE # (AUTO) 0.1 (0.0-1.0); IMMATURE GRANULOCYTE % (AUTO) 0.7 % (0.0-5.0); LYMPHOCYTES # (AUTO) 1.3 K/uL (0.60-3.4); LYMPHOCYTES % (AUTO) 14.8 (10.0-50.0); MEAN CORPUSCULAR HEMOGLOBIN 30.3 pg (27.0-31.0); MEAN CORPUSCULAR HGB CONC 31.7 (31.8-35.4); MEAN CORPUSCULAR VOLUME 95.5 fl (80.0-94.0); MONOCYTES # (AUTO) 0.6 K/uL (0.4-2.0); MONOCYTES % (AUTO) 7.5 (0-10); NEUTROPHILS # (AUTO) 6.3 K/ul (2.0-6.9); NEUTROPHILS % (AUTO) 74.5 % (42.2-75.2); PLATELET COUNT 276 10^3/uL (140-440); RDW COEFFICIENT OF VARIATION 14.3 % (11.6-14.8); RED BLOOD COUNT 4.46 10^6/ul (4.70-6.10); WHITE BLOOD COUNT 8.45 K/ul (4.2-10.2)
[2023-02-13 05:39] LABS: ALANINE AMINOTRANSFERASE 47.4 U/L (0-50); ALBUMIN 3.78 g/dL (3.5-5.0); ALKALINE PHOSPHATASE 107.6 U/L (56-119); BILIRUBIN,TOTAL 0.68 mg/dL (0.2-1.3); BLOOD UREA NITROGEN 19.1 mg/dL (9-20); CALCIUM 8.64 mg/dL (8.4-10.2); CARBON DIOXIDE 33.1 mmol/L (22-30.0); CREATININE 0.78 mg/dL (0.60-1.10); GLUCOSE 172.5 mg/dL (74-106); POTASSIUM 3.56 mmol/L (3.5-5.1); SODIUM 134.9 mmol/L (134.5-145); TOTAL PROTEIN 7.07 g/dL (6.3-8.2)
[2023-02-13] MEDS: LASIX TAB PO SCH (05:53)
[2023-02-13 06:05] VITALS: BP 113/83; TEMP 97.5
[2023-02-13] MEDS ORDERED: DECADRON IM ONE (06:30)
[2023-02-13] MEDS: ENTRESTO 24 MG-26 MG TABLET PO SCH (08:05)
[2023-02-13] MEDS: FERROUS SULFATE PO SCH (08:06)
[2023-02-13] MEDS: ZITHROMAX PO SCH (08:06)
[2023-02-13] MEDS: IMDUR PO SCH (08:06)
[2023-02-13] MEDS: TYLENOL PO PRN (08:08)
[2023-02-13] MEDS: LOPRESSOR PO SCH (08:09)
[2023-02-13] MEDS: TOPAMAX PO SCH (08:09)
[2023-02-13] MEDS: ALDACTONE PO SCH (08:10)
[2023-02-13] MEDS: SYMBICORT 160-4.5 MCG INHALER IH SCH (08:11)
[2023-02-13] MEDS: ELIQUIS PO SCH (08:11)
[2023-02-13] MEDS: ANORO ELLIPTA 62.5-25 MCG INH IH SCH (08:11)
[2023-02-13] MEDS ORDERED: GLUCOPHAGE PO SCH (08:18)
--- NOTE | 2023-02-13 08:56 | HOLTER ---
PATIENT INFORMATION AND COMMENTS Attending Physician: DR. KEISHA KNUTSON Indications: BRADYCARDIA __ Patient Medications: ALBUTEROL, CITALOPRAM, ELIQUIS, LASIX, IMDUR, LORAZEPAM, COZAAR, METFORMIN, METOPROLOL, NITROSTAT, SIMVASTATIN, TOPAMAX __ Pre-procedure Summary: Protocol: Standard Heart Rate Started: 02/10/2023 Minimum: 40 BPM Weight: 222 LBS Ended: 02/11/2023 Maximum: 86 BPM Height: 74" Duration: 24 HOURS Average: 66 BPM _ INTERPRETATIONS/OBSERVATIONS: 1. BASIC RHYTHM: ATRIAL FIBRILLATION, RATE 40 BPM TO 86 BPM, AVERAGE 66 BPM 2. PAUSES GREATER THAN 2.0 SECONDS= 36 IN 24 HOURS NOTED, LONGEST PAUSE CLOSE TO 3.0 SECONDS 3. INFREQUENT PVC'S 4. NO ST-T WAVE CHANGES FROM BASELINE 5. ASYMPTOMATIC DURING HOLTER RECORDING PERIOD THE PATIENT WAS ON METOPROLOL 50 MG PO BID DURING THE HOLTER RECORDING TIME. MTDD
--- NOTE | 2023-02-14 14:50 | DS ---
DATE OF SERVICE: 02/13/23 HOSPITAL COURSE: 67 year old white male hospitalized with CHF exacerbation. Both of patient's daughters are present in the room. REVIEW OF SYSTEMS: CONSTITUTIONAL: No night sweats. No fatigue, malaise, lethargy. No fever or chills. HEENT: Eyes: No visual changes. No eye pain. No eye discharge. ENT: No runny nose. No epistaxis. No sinus pain. No sore throat. No odynophagia. No congestion. RESPIRATORY: No cough, no congestion. No hemoptysis. No shortness of breath. CARDIOVASCULAR: No chest pain. No palpitations. No PND. No orthopnea. GASTROINTESTINAL: No abdominal pain. No nausea or vomiting. No diarrhea or constipation. No hematemesis. No hematochezia. GENITOURINARY: No urgency. No frequency. No dysuria. No hematuria. No obstructive symptoms. No discharge. No pain. No significant abnormal bleeding. MUSCULOSKELETAL: No musculoskeletal pain; no joint swelling. NEUROLOGICAL: No headache. No neck pain. No syncope. No seizures. No dizziness. PSYCHIATRIC: Not anxious. No depression. No suicidal thoughts. No homicidal thoughts. SKIN: No rash. No lesions. No wounds. ENDOCRINE: No unexplained weight loss. No weight gain. HEMATOLOGIC/LYMPHATIC: No anemia. No purpura. No petechiae. No prolonged or excessive bleeding. No palpable lymph nodes. PHYSICAL EXAMINATION: GENERAL: The patient is in bed in no distress. VITAL SIGNS: Temperature 97.5, pulse 69, respiratory rate 20, blood pressure 130/83, pulse ox 93 HEENT: Head normocephalic, atraumatic. Eyes: Extraocular muscles are intact. Pupils are equal, round and reactive to light and accommodation. Ears: No lesions. Nose appeared normal. Throat: No exudate or erythema. NECK: Supple. No JVD, no carotid bruit. No lymphadenopathy or thyromegaly. LUNGS: Decreased breath sounds in the bases, otherwise better air entry. HEART: S1, S2, irregular, no S3. ABDOMEN: Soft. EXTREMITIES: No edema. NEUROLOGIC: No focal deficit. Cranial nerves II through XII are grossly intact. No headache. No double vision. SKIN: Not dry. Intact. Turgor - normal. LYMPHATIC: No palpable lymph nodes/no lymphedema. MUSCULOSKELETAL: Normal joints with no swelling. Muscle tone is normal. LABS: Hemoglobin 13.5, hematocrit 42, WBC 8,400, normal differential, creatinine 0.7, BUN 19, potassium 3.5. PO2 of 59 with PCO2 of 42 with PH 7.42 with 92% saturation on room air. Patient's telemetry strips examined and patient had no pauses of two seconds or more during the night time from 7:00 p.m. to 7:00 a.m. DISCHARGE INSTRUCTIONS: He was instructed to watch and see anything of that kind. Patient's Metoprolol dose has been reduced to 25 twice a day. Entresto has been 24-26 BID, Losartan has been discontinued and Lasix has been increased to 40 mg daily. The rest of the medications have been continued. The patient was given a prescription for Lasix 40 mg and Entresto 24-26 one table twice a day. He was explained about the changes. Patient is ready to go and see Dr. Zhao today. His daughters are going to take him. ASSESSMENT: CHF, seems to be resolving with improvement in his blood gases noted yesterday with PO2 of 59 with PCO2 of 42 with PH 7.42 with 92% saturation on room air. Condition: Stable Code Status: DNI Patient has already been referred to Dr. Bueno for bilateral pleural effusion. Again, patient was explained about CHF and again advised to take his medication on a regular basis and wear the oxygen as long as he could, two liters per cannula and also elevate the legs, cut down on salt intake, weigh himself every day and if he weighs more than 2 lbs more take extra Lasix. Patient is already on Aldactone 25 twice a day. TIME SPENT: More than 35 minutes. Plan and coordination of the patient's care discussed in the presence of nurse. SPECIFIC ORDERS: TIME SPENT: 70 minutes CARLOS
--- NOTE | 2023-02-14 14:53 | PN ---
02/09/23 LEVEL 5, EXTENSIVE 02/10/23 INTERMEDIATE 02/11/23 INTERMEDIATE 02/12/23 EXTENSIVE 02/13/23 DISCHARGE, EXTENSIVE MTDD
== END 2023-02-13 08:46 | disposition home or self-care (01) | DRG 293 ==
LOC: ED 12:01 → MEDSURG A 14:43
PROVIDERS: ADMIT Internal Medicine; ATTEND Internal Medicine
DX: Z79.84 Long term (current) use of oral hypoglycemic drugs; I10 Essential (primary) hypertension; J44.9 Chronic obstructive pulmonary disease, unspecified; Z95.5 Presence of coronary angioplasty implant and graft; E78.5 Hyperlipidemia, unspecified; Z98.84 Bariatric surgery status; I48.91 Unspecified atrial fibrillation; R06.02 Shortness of breath; R63.0 Anorexia; R09.02 Hypoxemia; I25.2 Old myocardial infarction; Z79.899 Other long term (current) drug therapy; Z99.81 Dependence on supplemental oxygen; Z79.01 Long term (current) use of anticoagulants; I50.9 Heart failure, unspecified; E11.9 Type 2 diabetes mellitus without complications; Z51.81 Encounter for therapeutic drug level monitoring; R53.1 Weakness; J20.9 Acute bronchitis, unspecified